=== PATIENT | female | born 1995 | race Caucasian/White ===

== ENCOUNTER 2016-05-29 20:36 | Emergency (ER) | payer OTHER ==
[~2016-05-29] VITALS: Ht 165.1 cm; Wt 203.9 kg
[2016-05-29 20:50] VITALS: TEMP 37.1
[2016-05-29] MEDS ORDERED: SODIUM CHLORIDE 0.9% 1000ML 1,000 ML IV STA (21:30)
[2016-05-29] MEDS ORDERED: HYDROmorphone INJ 1 MG/ML SYR IV STA ×2 (21:30→23:10)
[2016-05-29] MEDS ORDERED: ONDANSETRON INJ 2 MG/ML 2 ML VIAL IV STA (21:30)
--- NOTE | 2016-05-29 21:33 | EMERGENCY ROOM VISIT NOTE ---
History Report prepared by Azeem: Dutch Matta Under the Supervision of: Dr. Layo Reyez M.D. First contact with patient: 21:25 Chief Complaint: WOUND INFECTION Stated Complaint: LARGE HOLE - SWELLING IN STOMACH Nursing Triage Summary: wound just right of midline in the suprapubic panis that has been present for approximately 6 months. Draining X 3 days. Initial wound measures 2 cm X 3.5 cm. Surrounding errythemia measures approximatley 9 cm X 4 cm. Patient has ? chills. Wound is draining a large amount of purulent drainage. Wound culture obtained. History of Present Illness The patient is a 20 year old female who presents to the Emergency Room with complaints of a worsening wound on the abdomen the she has had for about six months. The wound occasionally flares up, but she has never had to come to the ED for it. The patient has had chills but is not sure if she has had fevers. The wound does not extend to her vagina or thighs. The patient does not regularly take anything for pain. The patient denies any burning with urination. She does not have a history of MRSA. The patient has never had the wound scanned. Source of History: patient Onset: six months Position: abdomen Quality: other (wound infection) Timing: worsening Associated Symptoms: + chills, No fevers, No urinary symptoms Review of Systems See HPI for pertinent positives & negatives. A total of 10 systems reviewed and were otherwise negative. Past Medical & Surgical Medical Problems: (1) Allergic rhinitis Family History No pertinent family history Social History Smoking Status: Former Smoker Housing Status: lives with family Current/Historical Medications Scheduled Cephalexin Monohydrate (Keflex), 500 MG PO QID Sulfa/Trimethoprim (Bactrim Ds 800MG/160MG), 2 TAB PO BID Allergies Coded Allergies: No Known Allergies (Unverified , 03/11/15) Physical Exam Vital Signs Date Time Temp Pulse Resp B/P Pulse Ox O2 Delivery O2 Flow Rate FiO2 05/30/16 00:17 111 18 124/83 95 Room Air 05/29/16 22:51 101 18 130/89 99 Room Air 05/29/16 22:44 106 22 95/59 99 05/29/16 20:50 37.1 122 20 187/93 97 Room Air Physical Exam GENERAL: Patient is n moderate distress and is uncomfortable appearing. HEENT: No acute trauma, normocephalic atraumatic, mucous membranes moist, no nasal congestion, no scleral icterus. NECK: No stridor, no adenopathy, no meningismus, trachea is midline. LUNGS: No dyspnea. Clear to auscultation and equal bilaterally. No wheeze, no rhonchi. HEART: Tachycardic regular rhythm. No murmurs, rubs, gallops appreciated. ABDOMEN: Morbidly obese. Large indurated area with erythema over the lower pannus with extensive purulent discharge, small abscess left mid pannus. BACK: No midline tenderness, no CVA tenderness EXTREMITIES: Normal motion all extremities, no cyanosis, no edema. NEUROLOGIC: Alert and oriented, no acute motor or sensory deficits, no focal weakness, cranial nerves grossly intact. SKIN: No rash, no jaundice, no diaphoresis. Medical Decision & Procedures ER Provider Diagnostic Interpretation: Radiology results and stated below per my review and radiologist interpretation: CT SCAN OF THE ABDOMEN AND PELVIS WITH IV CONTRAST CLINICAL HISTORY: Abdominal pannus abscess. COMPARISON STUDY: No priors. TECHNIQUE: Following the IV administration of 120 cc of Optiray 320, CT scan of the abdomen and pelvis is performed from the lung bases to the proximal femora. Images are reviewed in the axial, sagittal, and coronal planes. IV contrast was administered without complication. Automated dose control exposure was utilized. The examination is degraded by large body habitus, and by streak artifact from the body wall abutting the CT gantry. CT DOSE: 2414.05 mGy.cm FINDINGS: Lung bases: The heart is normal in size and without pericardial effusion. The lung bases are clear. There is a tiny hiatal hernia. Liver: The contrast-enhanced liver is enlarged, measuring 23.5 cm in length. The liver demonstrates diffusely diminished attenuation consistent with severe hepatic steatosis. There is no intrahepatic biliary ductal dilatation. The hepatic veins and portal veins are patent. Gallbladder: Surgically absent noting clips in the gallbladder fossa. Spleen: The spleen is enlarged, measuring 15.5 cm in length. Pancreas: Unremarkable. Adrenal glands: Unremarkable. Kidneys: The contrast enhanced kidneys are normal in size and without hydronephrosis. The kidneys enhance symmetrically. Abdominal vasculature: The abdominal aorta is normal in course and caliber. Bowel: The small bowel and colon are normal in course and caliber. The appendix is well-visualized and normal. Peritoneum: There is no intraperitoneal free air or abdominal ascites. There is a small fat-containing umbilical hernia. Lymphadenopathy: None. Pelvic viscera: The bladder, uterus, and adnexa are normal as visualized. There are small ovarian follicles. Skeletal structures: No lytic or blastic lesions are seen. Soft tissues: There is dermal thickening seen in the inferior aspect of the abdominal pain is with mild soft tissue induration on the right. A small cutaneous defect is suggested. No organized fluid collection is seen to indicate abscess. IMPRESSION: 1. There are no acute infectious or inflammatory findings in the abdomen or pelvis. 2. There is dermal thickening with surrounding induration seen within the inferior aspect of the ventral abdominal pannus. A small cutaneous defect suggests a wound or ulceration. The appearance is typical for cellulitis. No organized fluid collection is seen to indicate abscess. 3. Hepatomegaly and severe hepatic steatosis. 4. Splenomegaly. 5. Additional findings as above. Electronically signed by: Rm Driscoll M.D. 05/29/2016 10:43 PM Dictated Date/Time: 05/29/2016 10:37 PM Laboratory Results 05/29/16 21:35 Red Blood Count 4.87, Mean Corpuscular Volume 85.0, Mean Corpuscular Hemoglobin 27.9, Mean Corpuscular Hemoglobin Concent 32.9, Mean Platelet Volume 11.0, Neutrophils (%) (Auto) 67.9, Lymphocytes (%) (Auto) 23.3, Monocytes (%) (Auto) 6.5, Eosinophils (%) (Auto) 1.6, Basophils (%) (Auto) 0.4, Neutrophils # (Auto) 8.26, Lymphocytes # (Auto) 2.83, Monocytes # (Auto) 0.79, Eosinophils # (Auto) 0.20, Basophils # (Auto) 0.05 05/29/16 21:35 Test 05/29/16 21:35 05/29/16 21:54 05/29/16 21:58 White Blood Count 12.17 K/uL (4.8-10.8) Red Blood Count 4.87 M/uL (4.2-5.4) Hemoglobin 13.6 g/dL (12.0-16.0) Hematocrit 41.4 % (37-47) Mean Corpuscular Volume 85.0 fL (80-100) Mean Corpuscular Hemoglobin 27.9 pg (25-34) Mean Corpuscular Hemoglobin Concent 32.9 g/dl (32-36) Platelet Count 290 K/uL (130-400) Mean Platelet Volume 11.0 fL (7.4-10.4) Neutrophils (%) (Auto) 67.9 % Lymphocytes (%) (Auto) 23.3 % Monocytes (%) (Auto) 6.5 % Eosinophils (%) (Auto) 1.6 % Basophils (%) (Auto) 0.4 % Neutrophils # (Auto) 8.26 K/uL (1.4-6.5) Lymphocytes # (Auto) 2.83 K/uL (1.2-3.4) Monocytes # (Auto) 0.79 K/uL (0.11-0.59) Eosinophils # (Auto) 0.20 K/uL (0-0.5) Basophils # (Auto) 0.05 K/uL (0-0.2) RDW Standard Deviation 41.5 fL (36.4-46.3) RDW Coefficient of Variation 13.4 % (11.5-14.5) Immature Granulocyte % (Auto) 0.3 % Immature Granulocyte # (Auto) 0.04 K/uL (0.00-0.02) Estimated GFR () 115.1 Estimated GFR (Non- 99.4 BUN/Creatinine Ratio 16.8 (10-20) Calcium Level 8.9 mg/dl (8.5-10.1) C-Reactive Protein 1.52 mg/dl (0-0.29) Bedside Hemoglobin 14.3 g/dl (12.0-16.0) Bedside Hematocrit 42 % (37-47) Bedside Sodium 142 mEq/L (135-144) Bedside Potassium 4.0 mEq/L (3.3-5.0) Bedside Chloride 103 mEq/L (101-112) Bedside Total CO2 26 mEq/l (24-31) Anion Gap 18.0 mmol/L (16-25) Bedside Blood Urea Nitrogen 13 mg/dl (7-18) Bedside Creatinine 0.8 mg/dl (0.6-1.3) Bedside Glucose (other) 96 mg/dl (70-99) Bedside Ionized Calcium (Sean) 1.19 mmol/l (1.12-1.32) Bedside Lactic Acid Venous 1.08 mmol/L (0.90-1.70) Laboratory results as reviewed by me. Medications Administered Medications (Trade) Dose Ordered Sig/Geovanny Route Start Time Stop Time Status Last Admin Dose Admin Hydromorphone HCl (Dilaudid Inj) 1 mg NOW STAT IV 05/29/16 21:30 05/29/16 21:33 DC 05/29/16 22:02 1 MG Ondansetron HCl 4 mg 4 mg NOW STAT IV 05/29/16 21:30 05/29/16 21:33 DC 05/29/16 22:02 4 MG Sodium Chloride (Nss 1000ml) 1,000 ml @ 999 mls/hr Q1H1M STAT IV 05/29/16 21:30 05/29/16 22:30 DC 05/29/16 21:59 999 MLS/HR Hydromorphone HCl 1 mg 1 mg NOW STAT IV 05/29/16 23:10 05/29/16 23:11 DC 05/29/16 23:17 1 MG Ceftriaxone Sodium/Dextrose (Rocephin Inj/D5 50ml) 70 ml @ 140 mls/hr NOW STAT IV 05/29/16 23:17 05/29/16 23:46 DC 05/29/16 23:27 140 MLS/HR Trimethoprim/ Sulfamethoxazole (Septra Ds 800/ 160MG Tab) 2 tab NOW STAT PO 05/29/16 23:40 05/29/16 23:41 DC 05/30/16 00:19 2 TAB Oxycodone HCl (Roxicodone Immediate Rel 5MG Home Pack) 1 homepack UD ONCE PO 05/29/16 23:45 05/29/16 23:46 DC 05/30/16 00:20 1 HOMEPACK Ondansetron HCl (ZOFRAN ODT 4MG Home Pack) 1 homepack UD ONCE PO 05/29/16 23:45 05/29/16 23:46 DC 05/30/16 00:20 1 HOMEPACK Procedure Incision & Drainage Indication: Abscess. Location: right pannus. exudate expressed Verbal consent was obtained after the risks and benefits were explained, including but not limited to bleeding, scarring, infection, pain, and bone/joint /nerve damage. At this time, the risks of the procedure are less than the risks of NOT performing the procedure. A time out was taken and the correct patient and site identified. The skin was prepped with betadine and a sterile field set. The wound was anesthetized with 2 mls 1% lidocaine without epinephrine. The abscess cavity was entered with a number 11 blade and exudative material expressed. The wound was explored for foreign bodies and none found. Debridement was not performed. Packing placed and a sterile dressing applied. Detailed wound care instructions and signs and symptoms of worsening infection reviewed with the patient. No complications and the patient tolerated the procedure well. ED Course 2119: The patient was evaluated in room A11b. A complete history and physical exam was performed. 0: NSS 1000 ml @ 999 mls/hr, Zofran 4 mg IV, Dilaudid 1 mg IV. 2224: The patient is feeling better. She will go to CT. 2310: Dilaudid 1 mg IV, Rocephin 2 gm IV. 2317: Ceftriaxone Sodium 2000 mg / dextrose 70 ml @ 140 mls/hr. 2317: Discussed incision & drainage procedure with her. She agreed. 2330: Incision & Drainage performed. Please see procedural note above. 2340: Septra Ds 800/160 mg 2 tabs PO. 2345: Zofran Odt 4 mg PO homepack, Oxycodone IR 5 mg PO homepack. Medical Decision Differential diagnosis includes abscess, cellulitis, intraabdominal infection, sepsis. 20 yr old female with draining abscess abdominal wall. With prolonged history went ahead with CT which did not show other acute findings besides abscess and cellulitis. Opened and packed abscessed as above. Given Rocphine IV and PO Bactrim. Will treat with Keflex and Bactrim given cellulitis with MRSA concern as well pending cultures. She is not septic. Mild tachy second mostly to anxiety I feel. Discussed return in 2-3 days for wound check, earlier if worsening symptoms or other concerns. Impression Primary Impression: Cutaneous abscess of abdominal wall Additional Impression: Cellulitis of abdominal wall Scribe Attestation The scribe's documentation has been prepared under my direction and personally reviewed by me in its entirety. I confirm that the note above accurately reflects all work, treatment, procedures, and medical decision making performed by me. Departure Information Dispostion Home / Self-Care Prescriptions Sulfa/Trimethoprim (Bactrim Ds 800MG/160MG) Tab 2 TAB PO BID for 7 Days, #14 TAB Prov: Layo Reyez M.D. 05/30/16 Cephalexin Monohydrate (Keflex) 500 Mg Cap 500 MG PO QID for 7 Days, #28 CAP Prov: Layo Reyez M.D. 05/30/16 Referrals Jose Steel M.D. (PCP) Patient Instructions ED Abscess IandD, [facility] Additional Instructions Return Thursday for removal of packing and repeat evaluation of wound. Problem Qualifiers
[2016-05-29] MEDS ORDERED: OPTIRAY 320 IV PRN (21:45)
[2016-05-29 22:07] LABS: BASO % 0.4 %; BASO ABS # 0.05 K/uL (0-0.2); COMPLETE YES; EOS % 1.6 %; HEMATOCRIT 41.4 % (37-47); IG% 0.3 %; LYMPH % 23.3 %; LYMPH ABS # 2.83 K/uL (1.2-3.4); MEAN CORPUSCULAR HEMOGLOBIN 27.9 pg (25-34); MEAN CORPUSCULAR HGB CONC 32.9 g/dl (32-36); MONO % 6.5 %; NEUT % 67.9 %; PLATELET COUNT 290 K/uL (130-400); RED BLOOD COUNT 4.87 M/uL (4.2-5.4); WHITE BLOOD COUNT 12.17 K/uL (4.8-10.8)
[2016-05-29 22:19] LABS: ISTAT CREATININE 0.8 mg/dl (0.6-1.3); ISTAT HEMOGLOBIN 14.3 g/dl (12.0-16.0); ISTAT IONIZED CALCIUM 1.19 mmol/l (1.12-1.32)
[2016-05-29 22:24] LABS: BLOOD UREA NITROGEN 14 mg/dl (7-18); BUN/CREATININE RATIO 16.8 (10-20); C-REACTIVE PROTEIN 1.52 mg/dl (0-0.29); CALCIUM 8.9 mg/dl (8.5-10.1); CARBON DIOXIDE 29 mmol/L (21-32); CHLORIDE 106 mmol/L (98-107); CREATININE 0.84 mg/dl (0.60-1.20); GLUCOSE 89 mg/dl (70-99); SODIUM 140 mmol/L (136-145)
[2016-05-29 22:37] VITALS: Ht 165.1 cm; Wt 203.9 kg
--- NOTE | 2016-05-29 22:44 | DIAGNOSTIC IMAGING REPORT ---
CT SCAN OF THE ABDOMEN AND PELVIS WITH IV CONTRAST CLINICAL HISTORY: Abdominal pannus abscess. COMPARISON STUDY: No priors. TECHNIQUE: Following the IV administration of 120 cc of Optiray 320, CT scan of the abdomen and pelvis is performed from the lung bases to the proximal femora. Images are reviewed in the axial, sagittal, and coronal planes. IV contrast was administered without complication. Automated dose control exposure was utilized. The examination is degraded by large body habitus, and by streak artifact from the body wall abutting the CT gantry. CT DOSE: 2414.05 mGy.cm FINDINGS: Lung bases: The heart is normal in size and without pericardial effusion. The lung bases are clear. There is a tiny hiatal hernia. Liver: The contrast-enhanced liver is enlarged, measuring 23.5 cm in length. The liver demonstrates diffusely diminished attenuation consistent with severe hepatic steatosis. There is no intrahepatic biliary ductal dilatation. The hepatic veins and portal veins are patent. Gallbladder: Surgically absent noting clips in the gallbladder fossa. Spleen: The spleen is enlarged, measuring 15.5 cm in length. Pancreas: Unremarkable. Adrenal glands: Unremarkable. Kidneys: The contrast enhanced kidneys are normal in size and without hydronephrosis. The kidneys enhance symmetrically. Abdominal vasculature: The abdominal aorta is normal in course and caliber. Bowel: The small bowel and colon are normal in course and caliber. The appendix is well-visualized and normal. Peritoneum: There is no intraperitoneal free air or abdominal ascites. There is a small fat-containing umbilical hernia. Lymphadenopathy: None. Pelvic viscera: The bladder, uterus, and adnexa are normal as visualized. There are small ovarian follicles. Skeletal structures: No lytic or blastic lesions are seen. Soft tissues: There is dermal thickening seen in the inferior aspect of the abdominal pain is with mild soft tissue induration on the right. A small cutaneous defect is suggested. No organized fluid collection is seen to indicate abscess. IMPRESSION: 1. There are no acute infectious or inflammatory findings in the abdomen or pelvis. 2. There is dermal thickening with surrounding induration seen within the inferior aspect of the ventral abdominal pannus. A small cutaneous defect suggests a wound or ulceration. The appearance is typical for cellulitis. No organized fluid collection is seen to indicate abscess. 3. Hepatomegaly and severe hepatic steatosis. 4. Splenomegaly. 5. Additional findings as above. Electronically signed by: Rm Driscoll M.D. 05/29/2016 10:43 PM Dictated Date/Time: 05/29/2016 10:37 PM
[2016-05-29] MEDS ORDERED: LIDOCAINE/EPINEPHRINE 1% 20 ML VIAL INFIL ONE (22:45)
[2016-05-29] MEDS ORDERED: CEFTRIAXONE SOD INJ 1 GM ADDVIAL IV STA (23:10)
[2016-05-29] MEDS ORDERED: CEFTRIAXONE SOD INJ 2000 MG in DEXTROSE 5% 50ML IV STA (23:17)
[2016-05-29] MEDS ORDERED: SULFAMETHOXAZOLE/TRIMETHOPRIM DS 800/160MG TAB PO STA (23:40)
[2016-05-29] MEDS ORDERED: ONDANSETRON HOME PACK 4MG OD TAB PO ONE (23:45)
[2016-05-29] MEDS ORDERED: OXYCODONE IR HOME PACK PO ONE (23:45)
[2016-05-30 00:17] VITALS: BP 124/83; PULSE 111; O2SAT 95
[2016-05-30] MEDS ORDERED: SULF800T23 PO (00:21)
[2016-05-30] MEDS ORDERED: CEPH500C PO (00:21)
== END 2016-05-30 00:28 | disposition home or self-care (01) ==
LOC: C.EDB 20:39 → C.EDA 05-30 00:28
DX: L02.211 Cutaneous abscess of abdominal wall (principal); L03.311 Cellulitis of abdominal wall; Z86.14 Personal history of Methicillin resistant Staphylococcus aureus infection; Z87.891 Personal history of nicotine dependence; E66.01 Morbid (severe) obesity due to excess calories

== ENCOUNTER 2016-05-31 20:02 | Inpatient (IN) | payer OTHER ==
[~2016-05-31] VITALS: Ht 165.1 cm; Wt 161.7 kg
[~2016-05-31 20:02] MED LIST: CEPH500C PO; SULF800T23 PO
[2016-05-31] MEDS ORDERED: SODIUM CHLORIDE 0.9% 1000ML 1,000 ML IV STA (20:27)
[2016-05-31] MEDS ORDERED: OXYCODONE HCL IR 5 MG TAB (IMMEDIATE RELEASE) PO STA (20:27)
[2016-05-31] MEDS ORDERED: CEFTRIAXONE SOD INJ 1 GM ADDVIAL IV STA (20:27)
--- NOTE | 2016-05-31 20:36 | EMERGENCY ROOM VISIT NOTE ---
History Report prepared by Azeem: Valarie Vance Under the Supervision of: Dr. Stewart Rene D.O. First contact with patient: 20:22 Chief Complaint: WOUND INFECTION Stated Complaint: CUT ON ABD, SWELLING & PUSS, DIARRHEA,NAUSEA History of Present Illness The patient is a 20 year old female who presents to the Emergency Room with complaints of worsening redness in a wound. The patient had a stomach infection which was cut open 2 days ago. She presents to the ED after the redness in the wound began to spread. She has been experiencing nausea. She denies any fever, chills, or redness in the legs. She reports that she is on Bactrim and Keflex. She denies any history of diabetes or hypertension. Source of History: patient Onset: 2 days ago Position: abdomen Quality: other (redness) Timing: worsening Associated Symptoms: + nausea, No chills, No fevers Note: Pt denies redness in legs. Review of Systems See HPI for pertinent positives & negatives. A total of 10 systems reviewed and were otherwise negative. Past Medical & Surgical Medical Problems: (1) Allergic rhinitis Family History No pertinent family history Social History Smoking Status: Light Tobacco Smoker Marital Status: single Housing Status: lives with family Occupation Status: unemployed Current/Historical Medications Scheduled Cephalexin Monohydrate (Keflex), 500 MG PO QID Sulfa/Trimethoprim (Bactrim Ds 800MG/160MG), 2 TAB PO BID Allergies Coded Allergies: No Known Allergies (Unverified , 03/11/15) Physical Exam Vital Signs Date Time Temp Pulse Resp B/P Pulse Ox O2 Delivery O2 Flow Rate FiO2 05/31/16 21:48 103 20 150/83 97 Room Air 05/31/16 20:09 37.3 122 20 140/87 95 Room Air Physical Exam GENERAL: Patient is awake, alert, and in no acute distress. Patient is resting comfortably and showing no signs of anxiety EYES: The conjunctivae are clear. The pupils are round and reactive. EARS, NOSE, MOUTH AND THROAT: The nose is without any evidence of any deformity. Mucous membranes are moist tongue is midline NECK: The neck is nontender and supple. RESPIRATORY: Normal respiratory effort is noted there is no evidence of wheezing rhonchi or rales CARDIOVASCULAR: Tachycardic rate and regular rhythm. No definite murmur noted to auscultation. GASTROINTESTINAL: The abdomen obese, but soft. No tenderness, guarding, or rigidity. A recent I&D site was noted over the lower abdominal wall. Significant surrounding cellulitis noted. Wound packing was removed. No purulent discharge was noted. MUSCULOSKELETAL/EXTREMITIES: There is no evidence of gross deformity full range of motion is noted in the hips and shoulders SKIN: No lower extremity edema noted. NEUROLOGIC: Patient is awake alert and oriented x3 Medical Decision & Procedures Laboratory Results 05/31/16 20:45 Red Blood Count 4.98, Mean Corpuscular Volume 84.5, Mean Corpuscular Hemoglobin 28.3, Mean Corpuscular Hemoglobin Concent 33.5, Mean Platelet Volume 11.1, Neutrophils (%) (Auto) 64.0, Lymphocytes (%) (Auto) 27.9, Monocytes (%) (Auto) 5.1, Eosinophils (%) (Auto) 2.2, Basophils (%) (Auto) 0.6, Neutrophils # (Auto) 6.81, Lymphocytes # (Auto) 2.97, Monocytes # (Auto) 0.54, Eosinophils # (Auto) 0.23, Basophils # (Auto) 0.06 05/31/16 20:45 Test 05/31/16 20:45 White Blood Count 10.63 K/uL (4.8-10.8) Red Blood Count 4.98 M/uL (4.2-5.4) Hemoglobin 14.1 g/dL (12.0-16.0) Hematocrit 42.1 % (37-47) Mean Corpuscular Volume 84.5 fL (80-100) Mean Corpuscular Hemoglobin 28.3 pg (25-34) Mean Corpuscular Hemoglobin Concent 33.5 g/dl (32-36) Platelet Count 327 K/uL (130-400) Mean Platelet Volume 11.1 fL (7.4-10.4) Neutrophils (%) (Auto) 64.0 % Lymphocytes (%) (Auto) 27.9 % Monocytes (%) (Auto) 5.1 % Eosinophils (%) (Auto) 2.2 % Basophils (%) (Auto) 0.6 % Neutrophils # (Auto) 6.81 K/uL (1.4-6.5) Lymphocytes # (Auto) 2.97 K/uL (1.2-3.4) Monocytes # (Auto) 0.54 K/uL (0.11-0.59) Eosinophils # (Auto) 0.23 K/uL (0-0.5) Basophils # (Auto) 0.06 K/uL (0-0.2) RDW Standard Deviation 40.3 fL (36.4-46.3) RDW Coefficient of Variation 13.3 % (11.5-14.5) Immature Granulocyte % (Auto) 0.2 % Immature Granulocyte # (Auto) 0.02 K/uL (0.00-0.02) Erythrocyte Sedimentation Rate 30 mm/hr (0-21) Anion Gap 6.0 mmol/L (3-11) Est Creatinine Clear Calc Drug Dose 126.3 ml/min Estimated GFR () 83.1 Estimated GFR (Non- 71.7 BUN/Creatinine Ratio 9.6 (10-20) Calcium Level 8.5 mg/dl (8.5-10.1) Total Bilirubin 0.4 mg/dl (0.2-1) Direct Bilirubin < 0.1 mg/dl (0-0.2) Aspartate Amino Transf (AST/SGOT) 20 U/L (15-37) Alanine Aminotransferase (ALT/SGPT) 38 U/L (12-78) Alkaline Phosphatase 65 U/L (45-117) C-Reactive Protein 1.37 mg/dl (0-0.29) Total Protein 8.3 gm/dl (6.4-8.2) Albumin 3.6 gm/dl (3.4-5.0) Lipase 108 U/L (73-393) Human Chorionic Gonadotropin, Qual NEG (NEG) Lyme Disease IgG Antibody NEG (NEG) Lyme Disease IgM Antibody NEG (NEG) Laboratory results per my review. Medications Administered Medications (Trade) Dose Ordered Sig/Geovanny Route Start Time Stop Time Status Last Admin Dose Admin Ceftriaxone Sodium 1 gm 1 gm NOW STAT IV 05/31/16 20:27 05/31/16 20:28 DC 05/31/16 20:27 1 GM Sodium Chloride (Nss 1000ml) 1,000 ml @ 250 mls/hr Q4H STAT IV 05/31/16 20:27 06/01/16 00:26 05/31/16 20:27 250 MLS/HR Oxycodone HCl 5 mg 5 mg NOW STAT PO 05/31/16 20:27 05/31/16 20:28 DC 05/31/16 20:27 5 MG Vancomycin HCl/ Sodium Chloride (Vancomycin Inj/ Nss 500ml) 540 ml @ 200 mls/hr ONE STAT IV 05/31/16 21:16 05/31/16 23:57 05/31/16 21:30 200 MLS/HR ED Course 2023: The patient was evaluated in room C1. A complete history and physical examination were performed. 2026: Oxycodone HCl 5 mg PO, NSS 1000 ml @ 250 mls/hr IV, Rocephin Inj 1 gm IV. 2115: Vancomycin HCl 2000 mg/Sodium Chloride 540 ml @ 200 mls/hr IV. 2120: I reevaluated the patient. She is resting comfortably. I discussed results and treatment plan with her. She verbalizes agreement and understanding. The patient will be evaluated for further management and care. 2126: I [facility] the [facility] The patient will be evaluated for further management. Medical Decision Prior records reviewed and summarized as above. Triage Nursing notes reviewed. The patient's history was concerning for swelling and redness of the skin. Differential diagnosis: Etiologies such as cellulitis, abscess, MRSA infection, DVT, necrotizing fasciitis, dermatitis, drug eruption, as well as others were entertained. The patient is a 20-year-old female who presented to the emergency department for worsening abdominal wall cellulitis. She was seen recently for similar complaints. She was started on antibiotics. She had an I&D of the area. Unfortunately she started having increasing redness and has a very large indurated area over lower abdominal wall. The patient was given IV antibiotics in the emergency department. [facility] agreed to evaluate the patient in emergency department for further management and disposition. I was concerned because the increasing cellulitis. The patient's initial culture appears to be growing out staph aureus. Consults Time Called: 2119 Consulting Physician[facility] Returned Call: [phone] I discussed the patient's case with him. The patient will be evaluated for further management. Impression Primary Impression: Abdominal wall cellulitis Scribe Attestation The scribe's documentation has been prepared under my direction and personally reviewed by me in its entirety. I confirm that the note above accurately reflects all work, treatment, procedures, and medical decision making performed by me. Departure Information Dispostion Being Evaluated By Hospitalist Referrals No Doctor, Assigned (PCP) Patient Instructions My [facility]
[2016-05-31 21:04] LABS: BASO % 0.6 %; BASO ABS # 0.06 K/uL (0-0.2); COMPLETE YES; EOS % 2.2 %; HEMATOCRIT 42.1 % (37-47); IG% 0.2 %; LYMPH % 27.9 %; LYMPH ABS # 2.97 K/uL (1.2-3.4); MEAN CELL VOLUME 84.5 fL (80-100); MEAN CORPUSCULAR HEMOGLOBIN 28.3 pg (25-34); MEAN CORPUSCULAR HGB CONC 33.5 g/dl (32-36); MEAN PLATELET VOLUME 11.1 fL (7.4-10.4); MONO % 5.1 %; PLATELET COUNT 327 K/uL (130-400); RED BLOOD COUNT 4.98 M/uL (4.2-5.4); WHITE BLOOD COUNT 10.63 K/uL (4.8-10.8)
[2016-05-31] MEDS ORDERED: VANCOMYCIN INJ 2,000 MG in SODIUM CHLORIDE 0.9% 500ML 500 ML IV STA (21:16)
[2016-05-31 21:19] LABS: PREG INTERNAL NEGATIVE QC NEG CLEAR BACKGROUND; PREG INTERNAL POSITIVE QC POS CONTROL LINE
[2016-05-31 21:22] LABS: ALT/SGPT 38 U/L (12-78); BLOOD UREA NITROGEN 11 mg/dl (7-18); BUN/CREATININE RATIO 9.6 (10-20); C-REACTIVE PROTEIN 1.37 mg/dl (0-0.29); CALCIUM 8.5 mg/dl (8.5-10.1); CARBON DIOXIDE 28 mmol/L (21-32); CHLORIDE 106 mmol/L (98-107); GLUCOSE 88 mg/dl (70-99); POTASSIUM 3.7 mmol/L (3.5-5.1); SODIUM 140 mmol/L (136-145)
[2016-05-31 21:25] LABS: ALKALINE PHOSPHATASE 65 U/L (45-117); AST/SGOT 20 U/L (15-37)
[2016-05-31 21:54] LABS: LYME DISEASE AB IGG NEG (NEG); LYME DISEASE AB IGM NEG (NEG)
[2016-05-31] MEDS ORDERED: ACETAMINOPHEN 325 MG TAB PO PRN (22:15)
--- NOTE | 2016-05-31 22:42 | History and Physical ---
History & Physical Date & Time of Service: May 31, 2016 at 22:42 . Chief Complaint: abdominal redness, pain, drainage . Primary Care Physician: Pauline Reina MD . History of Present Illness Source: patient, clinic records, hospital records 20 [address] followed by Dr[address] Reina. History of mild asthma and obesity. Developed abdominal abscess about 7 days ago. Became more painful. Evaluated in ED on 05/29. CT showed dermal thickening and induration. I & D performed. Discharged on TMP/sulfa + cephalexin. Increasing drainage from I&D wound over past 2 days. Increasing erythema and pain. No fever, chills, sweats. Loose stools since starting antibiotics. . Past Medical/Surgical History Chronic and Resolved Medical Problems: (1) Allergic rhinitis Status: Resolved (2) Asthma Status: Chronic (3) Obesity Status: Chronic Surgical Problems: (1) Status post cholecystectomy Status: Chronic . Family History FATHER Diabetes mellitus MOTHER Heart disease Social History Smoking Status: Light Tobacco Smoker Alcohol Use: none Marital Status: single Occupational Status: unemployed Allergies Coded Allergies: No Known Allergies (Unverified , 03/11/15) Home Medications Scheduled Cephalexin Monohydrate (Keflex), 500 MG PO QID Sulfa/Trimethoprim (Bactrim Ds 800MG/160MG), 2 TAB PO BID Review of Systems As noted above in HPI. . Physical Exam Vital Signs Date Time Temp Pulse Resp B/P Pulse Ox O2 Delivery O2 Flow Rate FiO2 05/31/16 21:48 103 20 150/83 97 Room Air 05/31/16 20:09 37.3 122 20 140/87 95 Room Air General Appearance: no apparent distress, + obese Head: normocephalic, atraumatic Eyes: normal inspection, PERRL, EOMI, sclerae normal ENT: normal ENT inspection, hearing grossly normal Neck: supple, no adenopathy, thyroid normal, no JVD, trachea midline Respiratory/Chest: lungs clear, no respiratory distress, no accessory muscle use Cardiovascular: regular rate, rhythm, no edema, no gallop, no JVD, no murmur Abdomen/GI: normal bowel sounds, non tender, soft, no organomegaly, no pulsatile mass Extremities/Musculoskelatal: no calf tenderness, + pertinent finding (chronic- appearing lymphedema) Neurologic/Psych: 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-XII nml as tested (PERRL, EOMI), alert, normal mood/ affect, oriented x 3 Skin: + pertinent finding (incision RLQ abdomen with purulent drainage; erythema + induration extending across midline) Lymphatic: no adenopathy Diagnostics Laboratory Results Results Past 24 Hours Test 05/31/16 20:45 Range/Units White Blood Count 10.63 4.8-10.8 K/uL Red Blood Count 4.98 4.2-5.4 M/uL Hemoglobin 14.1 12.0-16.0 g/dL Hematocrit 42.1 37-47 % Mean Corpuscular Volume 84.5 80-100 fL Mean Corpuscular Hemoglobin 28.3 25-34 pg Mean Corpuscular Hemoglobin Concent 33.5 32-36 g/dl Platelet Count 327 130-400 K/uL Mean Platelet Volume 11.1 7.4-10.4 fL Neutrophils (%) (Auto) 64.0 % Lymphocytes (%) (Auto) 27.9 % Monocytes (%) (Auto) 5.1 % Eosinophils (%) (Auto) 2.2 % Basophils (%) (Auto) 0.6 % Neutrophils # (Auto) 6.81 1.4-6.5 K/uL Lymphocytes # (Auto) 2.97 1.2-3.4 K/uL Monocytes # (Auto) 0.54 0.11-0.59 K/uL Eosinophils # (Auto) 0.23 0-0.5 K/uL Basophils # (Auto) 0.06 0-0.2 K/uL RDW Standard Deviation 40.3 36.4-46.3 fL RDW Coefficient of Variation 13.3 11.5-14.5 % Immature Granulocyte % (Auto) 0.2 % Immature Granulocyte # (Auto) 0.02 0.00-0.02 K/uL Erythrocyte Sedimentation Rate 30 0-21 mm/hr Sodium Level 140 136-145 mmol/L Potassium Level 3.7 3.5-5.1 mmol/L Chloride Level 106 98-107 mmol/L Carbon Dioxide Level 28 21-32 mmol/L Anion Gap 6.0 3-11 mmol/L Blood Urea Nitrogen 11 7-18 mg/dl Creatinine 1.10 0.60-1.20 mg/dl Est Creatinine Clear Calc Drug Dose 126.3 ml/min Estimated GFR () 83.1 Estimated GFR (Non- 71.7 BUN/Creatinine Ratio 9.6 10-20 Random Glucose 88 70-99 mg/dl Calcium Level 8.5 8.5-10.1 mg/dl Total Bilirubin 0.4 0.2-1 mg/dl Direct Bilirubin < 0.1 0-0.2 mg/dl Aspartate Amino Transf (AST/SGOT) 20 15-37 U/L Alanine Aminotransferase (ALT/SGPT) 38 12-78 U/L Alkaline Phosphatase 65 45-117 U/L C-Reactive Protein 1.37 0-0.29 mg/dl Total Protein 8.3 6.4-8.2 gm/dl Albumin 3.6 3.4-5.0 gm/dl Lipase 108 73-393 U/L Human Chorionic Gonadotropin, Qual NEG NEG Lyme Disease IgG Antibody NEG NEG Lyme Disease IgM Antibody NEG NEG Impression Assessment and Plan ABSCESS / CELLULITIS ABDOMEN Worsening cellulitis despite oral therapy with TMP/sulfa and cephalexin. Wound culture from I&D growing Staph aureus and coag neg Staph. Sensitivities for Staph aureus pending. Received IV vancomycin in ED, but developed facial flushing. Will change gram positive coverage to IV daptomycin. Ceftriaxone for gram negative coverage. Consult General Surgery and ID. LOOSE STOOLS Check stool for C diff. VTE PROPHYLAXIS Moderate risk for VTE. SQ enoxaparin. Ambulate. DISPOSITION Admit to Med-Surg Unit. Expected discharge to home. Family Medicine follow-up with Dr. Reina. . VTE Prophylaxis VTE Risk Assessment Done? Y/N: Yes Risk Level: Moderate Given or contraindicated: Enoxaparin (Lovenox)SQ
[2016-05-31 23:15] VITALS: BP 146/92; PULSE 113; TEMP 37; O2SAT 99; Ht 165.1 cm; Wt 161.7 kg
[2016-06-01 01:40] LABS: URINE APPEARANCE CLEAR (CLEAR); URINE BILIRUBIN NEG (NEG); URINE COLOR YELLOW; URINE NITRITE NEG (NEG); UROBILINOGEN NEG (NEG)
[2016-06-01 01:49] LABS: MANUAL MICROSCOPIC REQUIRED? NO; REVIEW REQ? NO
[2016-06-01] MEDS ORDERED: OXYCODONE/ACETAMINOPHEN 5-325 TAB PO PRN (05:15)
[2016-06-01 08:03] VITALS: BP 104/71; PULSE 90; TEMP 36.5; O2SAT 97
[2016-06-01 08:16] LABS: INR 0.9 (0.9-1.1); PARTIAL THROMBOPLASTIN RATIO 1.1
[2016-06-01] MEDS ORDERED: ENOXAPARIN 40 MG/0.4 ML SYR SQ SCH (09:00)
[2016-06-01] MEDS ORDERED: DAPTOmycin IV 650 MG in SODIUM CHLORIDE 0.9% 50ML 50 ML IV SCH (09:00)
--- NOTE | 2016-06-01 10:20 | Progress Note ---
Internal Med Progress Note Date of Service: Jun 01, 2016. Provider Documentation: SUBJECTIVE: Patient is doing better and eager to be discharged. Pain, redness - abdomen improving. No fever , chills. Drainage from site - improved. Diarrhea- improved OBJECTIVE: Vital Signs-as noted below Exam: General-AAOX3, no distress, Morbidly obese + Neck-Supple. No JVD Lungs-AEBE, no wheezing, rhonchi Heart-S1, S2 normal, no murmurs Abdomen-Soft, mild tenderness- surrounding I & D site, Erythema- improved, no drainage noted. Dressing re applied. Extremities-No edema Skin - Multiple tattoos Lab data as noted below. ASSESSMENT & PLAN: ABSCESS / CELLULITIS ABDOMEN : Clinically improving Was in ED on 05/29/16- I & D was performed- was sent home on TMP/Sulfa/ Cephalexin and came for increasing drainage, redness, pain. Tmax 37.9, Erythema, Tenderness has improved, no more discharge from site. -Wound culture from I&D growing MSSA and coag neg Staph pansensitive, so has been on right antibiotics -S/P IV Vancomycin in ED- Flushing --> Changed to Daptomycin per admitting physician -ID consulted, General surgery consulted- awaiting inputs. Will need to narrow down the spectrum of antibiotics per C/S- will defer to ID. LOOSE STOOLS Likely secondary to antibiotics -C diff- pending collection MORBID OBESITY -Counseling about weight loss done VTE PROPHYLAXIS -Moderate risk for VTE. -SQ enoxaparin. -Ambulate. DISPOSITION Expected discharge to home- likely in 1-2 days Family Medicine follow-up with Dr. Reina Vital Signs: Date Time Temp Pulse Resp B/P Pulse Ox O2 Delivery O2 Flow Rate FiO2 06/01/16 08:03 36.5 90 18 104/71 97 05/31/16 23:15 37.0 113 20 146/92 99 Room Air 05/31/16 22:51 98 20 96 05/31/16 21:48 103 20 150/83 97 Room Air 05/31/16 20:09 37.3 122 20 140/87 95 Room Air Lab Results: Results Past 24 Hours Test 05/31/16 20:45 05/31/16 23:55 06/01/16 07:03 Range/Units White Blood Count 10.63 4.8-10.8 K/uL Red Blood Count 4.98 4.2-5.4 M/uL Hemoglobin 14.1 12.0-16.0 g/dL Hematocrit 42.1 37-47 % Mean Corpuscular Volume 84.5 80-100 fL Mean Corpuscular Hemoglobin 28.3 25-34 pg Mean Corpuscular Hemoglobin Concent 33.5 32-36 g/dl Platelet Count 327 130-400 K/uL Mean Platelet Volume 11.1 7.4-10.4 fL Neutrophils (%) (Auto) 64.0 % Lymphocytes (%) (Auto) 27.9 % Monocytes (%) (Auto) 5.1 % Eosinophils (%) (Auto) 2.2 % Basophils (%) (Auto) 0.6 % Neutrophils # (Auto) 6.81 1.4-6.5 K/uL Lymphocytes # (Auto) 2.97 1.2-3.4 K/uL Monocytes # (Auto) 0.54 0.11-0.59 K/uL Eosinophils # (Auto) 0.23 0-0.5 K/uL Basophils # (Auto) 0.06 0-0.2 K/uL RDW Standard Deviation 40.3 36.4-46.3 fL RDW Coefficient of Variation 13.3 11.5-14.5 % Immature Granulocyte % (Auto) 0.2 % Immature Granulocyte # (Auto) 0.02 0.00-0.02 K/uL Erythrocyte Sedimentation Rate 30 0-21 mm/hr Sodium Level 140 136-145 mmol/L Potassium Level 3.7 3.5-5.1 mmol/L Chloride Level 106 98-107 mmol/L Carbon Dioxide Level 28 21-32 mmol/L Anion Gap 6.0 3-11 mmol/L Blood Urea Nitrogen 11 7-18 mg/dl Creatinine 1.10 0.60-1.20 mg/dl Est Creatinine Clear Calc Drug Dose 126.3 ml/min Estimated GFR () 83.1 Estimated GFR (Non- 71.7 BUN/Creatinine Ratio 9.6 10-20 Random Glucose 88 70-99 mg/dl Calcium Level 8.5 8.5-10.1 mg/dl Total Bilirubin 0.4 0.2-1 mg/dl Direct Bilirubin < 0.1 0-0.2 mg/dl Aspartate Amino Transf (AST/SGOT) 20 15-37 U/L Alanine Aminotransferase (ALT/SGPT) 38 12-78 U/L Alkaline Phosphatase 65 45-117 U/L C-Reactive Protein 1.37 0-0.29 mg/dl Total Protein 8.3 6.4-8.2 gm/dl Albumin 3.6 3.4-5.0 gm/dl Lipase 108 73-393 U/L Human Chorionic Gonadotropin, Qual NEG NEG Lyme Disease IgG Antibody NEG NEG Lyme Disease IgM Antibody NEG NEG Urine Color YELLOW Urine Appearance CLEAR CLEAR Urine pH 7.0 4.5-7.5 Urine Specific [place] 1.030 1.000-1.030 Urine Protein NEG NEG Urine Glucose (UA) NEG NEG Urine Ketones NEG NEG Urine Occult Blood NEG NEG Urine Nitrite NEG NEG Urine Bilirubin NEG NEG Urine Urobilinogen NEG NEG Urine Leukocyte Esterase NEG NEG Prothrombin Time 10.0 9.0-12.0 SECONDS Prothromb Time International Ratio 0.9 0.9-1.1 Activated Partial Thromboplast Time 27.3 21.0-31.0 SECONDS Partial Thromboplastin Ratio 1.1
--- NOTE | 2016-06-01 10:47 | Pre-Operative Consultation ---
History General Date of Service: Jun 01, 2016. HPI HPI: The patient is a 20 year old female being seen for cellulitis of her abdominal wall. She presented with complaints of worsening redness in a wound. She had I& D of left lower abdominal wall 2 days ago. She denies fever or chills. She reports that she is on Bactrim and Keflex. A CT scan shows cellulitis without abscess. Historian: patient Procedure Urgency: Acute Risk Assessment Daily beta eliseo use?: No Problem List Medical Problems: (1) Abdominal wall cellulitis Status: Acute (2) Cellulitis of abdominal wall Status: Acute (3) Cutaneous abscess of abdominal wall Status: Acute (4) cholecystectomy Medical & Surgical History Past Medical History: other (morbid obesity) Past Surgical History: cholecystectomy Family History Family History: no pertinent family hx Social History Smoking Status: Current Every Day Smoker Alcohol: occasionally Drug Use: none Marital status: single Housing status: lives with family Occupation status: unemployed Allergies Allergies: Coded Allergies: No Known Allergies (Unverified , 03/11/15) Medications Current Inpatient Medications Current Inpatient Medications Medications (Trade) Dose Ordered Sig/Geovanny Route Start Time Stop Time Status Last Admin Dose Admin Acetaminophen (Tylenol Tab) 650 mg Q4H PRN PO 05/31/16 22:15 06/30/16 22:14 05/31/16 23:33 650 MG Enoxaparin Sodium 40 mg 40 mg QAM SQ 06/01/16 09:00 07/01/16 08:59 Ceftriaxone Sodium 2000 mg/ Dextrose 70 ml @ 100 mls/hr DAILY@2000 IV 06/01/16 20:00 06/09/16 20:41 Daptomycin/Sodium Chloride (Cubicin IV/Nss 50ml) 63 ml @ 100 mls/hr DAILY@0900 IV 06/01/16 09:00 06/11/16 08:59 06/01/16 08:49 100 MLS/HR Oxycodone/ Acetaminophen (Percocet 5-325mg Tab) 2 tab Q6H PRN PO 06/01/16 05:15 06/15/16 05:14 Review of Systems Review of Systems Constitutional: denies chills, denies diaphoresis, denies fever Eyes: reports: no symptoms ENT: reports: no symptoms reported Cardiovascular: denies: chest pain, chest pressure, chest tightness Respiratory: denies: cough, short of breath, stridor Gastrointestinal: denies abdominal pain, denies constipation, denies diarrhea, nausea, denies vomiting Genitourinary - Female: reports: no symptoms Musculoskeletal: denies back pain, denies joint pain, denies joint swelling, denies muscle stiffness Integumentary: change in color, denies change in hair/nails, denies dryness, denies lumps, rash Neurologic: reports: no symptoms Psychiatric: reports: no symptoms Endocrine: no symptoms Hematologic / Lymphatic: no symptoms Allergic / Immunologic: no symptoms Physical Exam Physical Exam General Appearance: + WD/WN, No distress Ears, Nose, Throat: + normal ENT inspection Neck: No lymphadenophy, No stiffness, No tenderness, No tracheal deviation Respiratory: No decreased breath sounds, No rhonchi, No stridor, No wheezing Cardiovascular: No abnormal rate, No diastolic murmur, No gallop/S3, No gallop/ S4, No systolic murmur Abdomen: + tenderness, No abnormal bowel sounds, No distension, No hernia Extremities: + swelling, No deformity Neurologic/Psychiatric: No disorientation, No motor deficit/weakness, No sensory deficit Skin Characteristics: No diaphoresis, No jaundice, No pallor, No rash Lymphatic: No abnormal adenopathy Diagnostics Labs Labs Results Past 24 Hours Test 05/31/16 20:45 05/31/16 23:55 06/01/16 07:03 Range/Units White Blood Count 10.63 4.8-10.8 K/uL Red Blood Count 4.98 4.2-5.4 M/uL Hemoglobin 14.1 12.0-16.0 g/dL Hematocrit 42.1 37-47 % Mean Corpuscular Volume 84.5 80-100 fL Mean Corpuscular Hemoglobin 28.3 25-34 pg Mean Corpuscular Hemoglobin Concent 33.5 32-36 g/dl Platelet Count 327 130-400 K/uL Mean Platelet Volume 11.1 7.4-10.4 fL Neutrophils (%) (Auto) 64.0 % Lymphocytes (%) (Auto) 27.9 % Monocytes (%) (Auto) 5.1 % Eosinophils (%) (Auto) 2.2 % Basophils (%) (Auto) 0.6 % Neutrophils # (Auto) 6.81 1.4-6.5 K/uL Lymphocytes # (Auto) 2.97 1.2-3.4 K/uL Monocytes # (Auto) 0.54 0.11-0.59 K/uL Eosinophils # (Auto) 0.23 0-0.5 K/uL Basophils # (Auto) 0.06 0-0.2 K/uL RDW Standard Deviation 40.3 36.4-46.3 fL RDW Coefficient of Variation 13.3 11.5-14.5 % Immature Granulocyte % (Auto) 0.2 % Immature Granulocyte # (Auto) 0.02 0.00-0.02 K/uL Erythrocyte Sedimentation Rate 30 0-21 mm/hr Sodium Level 140 136-145 mmol/L Potassium Level 3.7 3.5-5.1 mmol/L Chloride Level 106 98-107 mmol/L Carbon Dioxide Level 28 21-32 mmol/L Anion Gap 6.0 3-11 mmol/L Blood Urea Nitrogen 11 7-18 mg/dl Creatinine 1.10 0.60-1.20 mg/dl Est Creatinine Clear Calc Drug Dose 126.3 ml/min Estimated GFR () 83.1 Estimated GFR (Non- 71.7 BUN/Creatinine Ratio 9.6 10-20 Random Glucose 88 70-99 mg/dl Calcium Level 8.5 8.5-10.1 mg/dl Total Bilirubin 0.4 0.2-1 mg/dl Direct Bilirubin < 0.1 0-0.2 mg/dl Aspartate Amino Transf (AST/SGOT) 20 15-37 U/L Alanine Aminotransferase (ALT/SGPT) 38 12-78 U/L Alkaline Phosphatase 65 45-117 U/L C-Reactive Protein 1.37 0-0.29 mg/dl Total Protein 8.3 6.4-8.2 gm/dl Albumin 3.6 3.4-5.0 gm/dl Lipase 108 73-393 U/L Human Chorionic Gonadotropin, Qual NEG NEG Lyme Disease IgG Antibody NEG NEG Lyme Disease IgM Antibody NEG NEG Urine Color YELLOW Urine Appearance CLEAR CLEAR Urine pH 7.0 4.5-7.5 Urine Specific [place] 1.030 1.000-1.030 Urine Protein NEG NEG Urine Glucose (UA) NEG NEG Urine Ketones NEG NEG Urine Occult Blood NEG NEG Urine Nitrite NEG NEG Urine Bilirubin NEG NEG Urine Urobilinogen NEG NEG Urine Leukocyte Esterase NEG NEG Prothrombin Time 10.0 9.0-12.0 SECONDS Prothromb Time International Ratio 0.9 0.9-1.1 Activated Partial Thromboplast Time 27.3 21.0-31.0 SECONDS Partial Thromboplastin Ratio 1.1 Diagnostic Radiology Diagnostic Radiology CT SCAN OF THE ABDOMEN AND PELVIS WITH IV CONTRAST CLINICAL HISTORY: Abdominal pannus abscess. COMPARISON STUDY: No priors. TECHNIQUE: Following the IV administration of 120 cc of Optiray 320, CT scan of the abdomen and pelvis is performed from the lung bases to the proximal femora. Images are reviewed in the axial, sagittal, and coronal planes. IV contrast was administered without complication. Automated dose control exposure was utilized. The examination is degraded by large body habitus, and by streak artifact from the body wall abutting the CT gantry. CT DOSE: 2414.05 mGy.cm FINDINGS: Lung bases: The heart is normal in size and without pericardial effusion. The lung bases are clear. There is a tiny hiatal hernia. Liver: The contrast-enhanced liver is enlarged, measuring 23.5 cm in length. The liver demonstrates diffusely diminished attenuation consistent with severe hepatic steatosis. There is no intrahepatic biliary ductal dilatation. The hepatic veins and portal veins are patent. Gallbladder: Surgically absent noting clips in the gallbladder fossa. Spleen: The spleen is enlarged, measuring 15.5 cm in length. Pancreas: Unremarkable. Adrenal glands: Unremarkable. Kidneys: The contrast enhanced kidneys are normal in size and without hydronephrosis. The kidneys enhance symmetrically. Abdominal vasculature: The abdominal aorta is normal in course and caliber. Bowel: The small bowel and colon are normal in course and caliber. The appendix is well-visualized and normal. Peritoneum: There is no intraperitoneal free air or abdominal ascites. There is a small fat-containing umbilical hernia. Lymphadenopathy: None. Pelvic viscera: The bladder, uterus, and adnexa are normal as visualized. There are small ovarian follicles. Skeletal structures: No lytic or blastic lesions are seen. Soft tissues: There is dermal thickening seen in the inferior aspect of the abdominal pain is with mild soft tissue induration on the right. A small cutaneous defect is suggested. No organized fluid collection is seen to indicate abscess. IMPRESSION: 1. There are no acute infectious or inflammatory findings in the abdomen or pelvis. 2. There is dermal thickening with surrounding induration seen within the inferior aspect of the ventral abdominal pannus. A small cutaneous defect suggests a wound or ulceration. The appearance is typical for cellulitis. No organized fluid collection is seen to indicate abscess. 3. Hepatomegaly and severe hepatic steatosis. 4. Splenomegaly. 5. Additional findings as above. Impression Assessment and Plan Assessment and Plan Abdominal wall celluilitis -no abscess -would con't IV abx until sensitivities return to switch to oral -no surgical issues -will sign off
[2016-06-01] MEDS ORDERED: CLIN300C10 PO ×2 (15:27)
[2016-06-01 15:46] VITALS: BP 126/89; PULSE 101; TEMP 36.6; O2SAT 97
[2016-06-01] MEDS ORDERED: NURSING VERBAL MED ORDER ONE (16:00)
--- NOTE | 2016-06-01 17:51 | Discharge Instructions ---
Discharge Instructions Date of Service Jun 01, 2016. Admission Reason for Admission: Cellulitis And Abscess Of Unsp Site Discharge Discharge Diagnosis / Problem: 1. Abdominal wall cellulitis status post I & D Discharge Goals Goal(s): Prevent Disease Progression Activity Recommendations Activity Limitations: resume your previous activity (as tolerated) . Instructions / Follow-Up Instructions / Follow-Up New medication: Clindamycin 450 mg PO TID x 10 days FOLLOW UP Advised to follow up with PCP in 1 week Current Hospital Diet Patient's current hospital diet: Regular Diet Discharge Diet Recommended Diet: Low Fat Diet Pending Studies Studies pending at discharge: no Medical Emergencies . Who to Call and When: Medical Emergencies: If at any time you feel your situation is an emergency, please call 911 immediately. . Non-Emergent Contact Non-Emergency issues call your: Primary Care Provider . . "Provider Documentation" section prepared by Puja Hernandez. VTE Core Measure Inpt VTE Proph given/why not?: Enoxaparin (Lovenox)SQ
--- NOTE | 2016-06-01 17:56 | Discharge Summary ---
Discharge Summary Date of Service Jun 01, 2016. Discharge Summary Admission Date: May 31, 2016 at 22:07 Discharge Date: Jun 01, 2016 Discharge Disposition: Home (Left against medical advice) Principal Diagnosis: 1. Abdominal wall cellulitis status post I & D Secondary Diagnoses/Problems: 1. Morbid obesity Procedures: IV antibiotics Consultations: General surgery ID (Unable to see patient as she left AMA) Pending Studies/Follow-Up: New medication: Clindamycin 450 mg PO TID for 10 days FOLLOW UP Advised to follow up with PCP in 1 week Medication Reconciliation New Medications: Clindamycin Hcl (Clindamycin Hcl) 300 Mg Cap 450 MG PO TID for 10 Days, #30 TAB Discontinued Medications: Cephalexin Monohydrate (Keflex) 500 Mg Cap 500 MG PO QID for 7 Days, #28 CAP Sulfa/Trimethoprim (Bactrim Ds 800MG/160MG) Tab 2 TAB PO BID for 7 Days, #14 TAB Admission Information HPI (per Admitting provider): 20 YO female followed by Dr. Reina. History of mild asthma and obesity. Developed abdominal abscess about 7 days ago. Became more painful. Evaluated in ED on 05/29. CT showed dermal thickening and induration. I & D performed. Discharged on TMP/sulfa + cephalexin. Increasing drainage from I&D wound over past 2 days. Increasing erythema and pain. No fever, chills, sweats. Loose stools since starting antibiotics. . Physical Exam (per Admitting): General Appearance: no apparent distress, + obese Head: normocephalic, atraumatic Eyes: normal inspection, PERRL, EOMI, sclerae normal ENT: normal ENT inspection, hearing grossly normal Neck: supple, no adenopathy, thyroid normal, no JVD, trachea midline Respiratory/Chest: lungs clear, no respiratory distress, no accessory muscle use Cardiovascular: regular rate, rhythm, no edema, no gallop, no JVD, no murmur Abdomen/GI: normal bowel sounds, non tender, soft, no organomegaly, no pulsatile mass Extremities/Musculoskelatal: no calf tenderness, + pertinent finding ( chronic-appearing lymphedema) 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 Tmax 37.9, Erythema, Tenderness has improved, no more discharge from site. -Wound culture from I&D on 05/2316 growing MSSA and coag neg Staph pansensitive, so has been on right antibiotics -S/P IV Vancomycin in ED- Flushing --> Changed to Daptomycin per admitting physician -ID consulted, General surgery consulted. Per general surgery- cellulitis and no abscess so no indication for surgery. ID was unable to see patient as patient left AMA. PLAN: Clindamycin 450 mg PO TID x 10 days prescribed on basis of I & D culture sensitivity results on 05/29/16. LOOSE STOOLS Likely secondary to antibiotics -C diff- pending collection MORBID OBESITY -Counseling about weight loss done VTE PROPHYLAXIS -Moderate risk for VTE. -SQ enoxaparin. -Ambulate. DISPOSITION Left against medical advice Patient was adamant about leaving AMA. Explained the risks of doing so- deterioration of current clinical condition. Understands but would want to leave. Family Medicine follow-up with Dr. Reina Total time spent on discharge = 28 minutes This includes examination of the patient, discharge planning, medication reconciliation, and communication with other providers. Discharge Instructions Left against medical advice
--- NOTE | 2016-06-01 18:02 | Medical Consult ---
Consultation Date of Consultation: Jun 01, 2016. Attending Physician: Maria Ines Hughes M.D. Reason for Consultation: cellulitis History of Present Illness 20-year-old female with history of obesity and bipolar disorder, otherwise in good health, states that she has had a small "pimple" on her lower abdominal wall for approximately 6 months. She frequently picks at the area, and approximately 1 week ago, she developed progressively worsening pain, redness, and swelling surrounding the area. She was seen in the emergency department where a small superficial abscess was drained, and cultures have now grown a methicillin sensitive Staph aureus as well as coagulase negative Staph and Corynebacterium. She was treated with oral Bactrim and cephalexin but symptoms worsened and she was admitted to the hospital for further management. She has been treated with combination of vancomycin and ceftriaxone with improvement with some regression of the erythema. Having some loose stools, remains afebrile. Past Medical/Surgical History Medical Problems: (1) Abdominal wall cellulitis Status: Acute (2) Cellulitis of abdominal wall Status: Acute (3) Cutaneous abscess of abdominal wall Status: Acute Medical Problems: (1) Allergic rhinitis (2) Asthma (3) Obesity Surgical Problems: (1) Status post cholecystectomy Family History Diabetes mellitus FATHER Heart disease MOTHER Social History Smoking Status: Current Every Day Smoker Alcohol Use: none Drug Use: none Marital Status: single Housing Status: lives with family Occupation Status: unemployed Allergies Coded Allergies: No Known Allergies (Unverified , 03/11/15) Current Inpatient Medications Current Inpatient Medications Medications (Trade) Dose Ordered Sig/Geovanny Route Start Time Stop Time Status Last Admin Dose Admin Acetaminophen (Tylenol Tab) 650 mg Q4H PRN PO 05/31/16 22:15 06/30/16 22:14 05/31/16 23:33 650 MG Enoxaparin Sodium 40 mg 40 mg QAM SQ 06/01/16 09:00 07/01/16 08:59 Daptomycin/Sodium Chloride (Cubicin IV/Nss 50ml) 63 ml @ 100 mls/hr DAILY@0900 IV 06/01/16 09:00 06/11/16 08:59 06/01/16 08:49 100 MLS/HR Oxycodone/ Acetaminophen (Percocet 5-325mg Tab) 2 tab Q6H PRN PO 06/01/16 05:15 06/15/16 05:14 Review of Systems all systems were reviewed and are negative except as per HPI Physical Exam Date Time Temp Pulse Resp B/P Pulse Ox O2 Delivery O2 Flow Rate FiO2 06/01/16 15:46 36.6 101 16 126/89 97 06/01/16 08:03 36.5 90 18 104/71 97 06/01/16 08:00 Room Air 05/31/16 23:15 37.0 113 20 146/92 99 Room Air 05/31/16 22:51 98 20 96 05/31/16 21:48 103 20 150/83 97 Room Air 05/31/16 20:09 37.3 122 20 140/87 95 Room Air General Appearance: WD/WN, no apparent distress, + obese Head: normocephalic, atraumatic Eyes: normal inspection, EOMI, sclerae normal ENT: normal ENT inspection, hearing grossly normal, pharynx normal Neck: supple, no adenopathy, thyroid normal, trachea midline Respiratory/Chest: chest non-tender, lungs clear, normal breath sounds, no respiratory distress Cardiovascular: regular rate, rhythm, no gallop, no murmur Abdomen/GI: normal bowel sounds, non tender, soft, no organomegaly Back: normal inspection, no CVA tenderness Extremities/Musculoskelatal: normal inspection, normal capillary refill Neurologic/Psych: alert, oriented x 3 Skin: normal color, warm/dry, no rash, + pertinent finding ( erythema involving lower quadrant of abdomen, appears to be receding from prior markings) Lymphatic: no adenopathy Laboratory Results RUN DATE: 06/01/16 [facility] PAGE 1 RUN TIME: 906 Specimen Inquiry [facility]: [id number] LOC: [facility] [place] # : [id number] AGE/SX: 20/F ROOM: REG : 05/29/[address]: Layo Reyez M. : 1995 BED: DIS : STATUS: DEP ER TLOC: SPEC #: [id number] RADHA: 05/29/16 STATUS: COMP REQ #: [id number] RECD: 05/29/[address]: Layo Reyez M.D. SOURCE: DRAIN-SURF ENTR: 05/29/[address]: Jose Steel M.D. SPDESC: ABD ORDERED: SURF WND [facility] COMMENTS: Specimen Comment lizyess, chaparroith abdomen. Has Specimen Been Obtained/Collected? Y Procedure Result Verified Site GRAM STAIN Final 05/30/16-075 RESULT MANY POLYS MANY GRAM POSITIVE COCCI SURFACE WOUND CULTURE Final 06/01/16 Organism 1 STAPHYLOCOCCUS AUREUS QUANITY FEW SENS SENSITIVITY TO FOLLOW +MIXWOUND PLUS MODERATE COUNTS OF PROBABLE SKIN RAUL Organism 2 COAG NEG STAPHYLOCOCCUS QUANITY FEW SENS NO SENSITIVITY TO FOLLOW Organism 3 CORYNEBACTERIUM SPECIES QUANITY FEW SENS NO SENSITIVITY TO FOLLOW 1. STAPHYLOCOCCUS AUREUS Target Route Dose RX AB Cost M.I.C. IQ ------ ----- ------ -- ------ -------- - ------ TRIMET/SULFA S <=0.5/ 9.5 * OXACILLIN S 0.5 VANCOMYCIN S 2 ERYTHROMYCIN S <=0.5 TETRACYCLINE S <=4 CLINDAMYCIN S <=0.5 DAPTOMYCIN S <=0.5 S = SENSITIVE I = INTERMEDIATE R = RESISTANT END OF REPORT Last 24 Hours Test 05/31/16 20:45 05/31/16 23:55 06/01/16 07:03 White Blood Count 10.63 K/uL Red Blood Count 4.98 M/uL Hemoglobin 14.1 g/dL Hematocrit 42.1 % Mean Corpuscular Volume 84.5 fL Mean Corpuscular Hemoglobin 28.3 pg Mean Corpuscular Hemoglobin Concent 33.5 g/dl Platelet Count 327 K/uL Mean Platelet Volume 11.1 fL Neutrophils (%) (Auto) 64.0 % Lymphocytes (%) (Auto) 27.9 % Monocytes (%) (Auto) 5.1 % Eosinophils (%) (Auto) 2.2 % Basophils (%) (Auto) 0.6 % Neutrophils # (Auto) 6.81 K/uL Lymphocytes # (Auto) 2.97 K/uL Monocytes # (Auto) 0.54 K/uL Eosinophils # (Auto) 0.23 K/uL Basophils # (Auto) 0.06 K/uL RDW Standard Deviation 40.3 fL RDW Coefficient of Variation 13.3 % Immature Granulocyte % (Auto) 0.2 % Immature Granulocyte # (Auto) 0.02 K/uL Erythrocyte Sedimentation Rate 30 mm/hr Sodium Level 140 mmol/L Potassium Level 3.7 mmol/L Chloride Level 106 mmol/L Carbon Dioxide Level 28 mmol/L Anion Gap 6.0 mmol/L Blood Urea Nitrogen 11 mg/dl Creatinine 1.10 mg/dl Est Creatinine Clear Calc Drug Dose 126.3 ml/min Estimated GFR () 83.1 Estimated GFR (Non- 71.7 BUN/Creatinine Ratio 9.6 Random Glucose 88 mg/dl Calcium Level 8.5 mg/dl Total Bilirubin 0.4 mg/dl Direct Bilirubin < 0.1 mg/dl Aspartate Amino Transf (AST/SGOT) 20 U/L Alanine Aminotransferase (ALT/SGPT) 38 U/L Alkaline Phosphatase 65 U/L C-Reactive Protein 1.37 mg/dl Total Protein 8.3 gm/dl Albumin 3.6 gm/dl Lipase 108 U/L Human Chorionic Gonadotropin, Qual NEG Lyme Disease IgG Antibody NEG Lyme Disease IgM Antibody NEG Urine Color YELLOW Urine Appearance CLEAR Urine pH 7.0 Urine Specific [place] 1.030 Urine Protein NEG Urine Glucose (UA) NEG Urine Ketones NEG Urine Occult Blood NEG Urine Nitrite NEG Urine Bilirubin NEG Urine Urobilinogen NEG Urine Leukocyte Esterase NEG Prothrombin Time 10.0 SECONDS Prothromb Time International Ratio 0.9 Activated Partial Thromboplast Time 27.3 SECONDS Partial Thromboplastin Ratio 1.1 Endcc: [~ rep ct add3]] CT SCAN OF THE ABDOMEN AND PELVIS WITH IV CONTRAST CLINICAL HISTORY: Abdominal pannus abscess. COMPARISON STUDY: No priors. TECHNIQUE: Following the IV administration of 120 cc of Optiray 320, CT scan of the abdomen and pelvis is performed from the lung bases to the proximal femora. Images are reviewed in the axial, sagittal, and coronal planes. IV contrast was administered without complication. Automated dose control exposure was utilized. The examination is degraded by large body habitus, and by streak artifact from the body wall abutting the CT gantry. CT DOSE: 2414.05 mGy.cm FINDINGS: Lung bases: The heart is normal in size and without pericardial effusion. The lung bases are clear. There is a tiny hiatal hernia. Liver: The contrast-enhanced liver is enlarged, measuring 23.5 cm in length. The liver demonstrates diffusely diminished attenuation consistent with severe hepatic steatosis. There is no intrahepatic biliary ductal dilatation. The hepatic veins and portal veins are patent. Gallbladder: Surgically absent noting clips in the gallbladder fossa. Spleen: The spleen is enlarged, measuring 15.5 cm in length. Pancreas: Unremarkable. Adrenal glands: Unremarkable. Kidneys: The contrast enhanced kidneys are normal in size and without hydronephrosis. The kidneys enhance symmetrically. Abdominal vasculature: The abdominal aorta is normal in course and caliber. Bowel: The small bowel and colon are normal in course and caliber. The appendix is well-visualized and normal. Peritoneum: There is no intraperitoneal free air or abdominal ascites. There is a small fat-containing umbilical hernia. Lymphadenopathy: None. Pelvic viscera: The bladder, uterus, and adnexa are normal as visualized. There are small ovarian follicles. Skeletal structures: No lytic or blastic lesions are seen. Soft tissues: There is dermal thickening seen in the inferior aspect of the abdominal pain is with mild soft tissue induration on the right. A small cutaneous defect is suggested. No organized fluid collection is seen to indicate abscess. IMPRESSION: 1. There are no acute infectious or inflammatory findings in the abdomen or pelvis. 2. There is dermal thickening with surrounding induration seen within the inferior aspect of the ventral abdominal pannus. A small cutaneous defect suggests a wound or ulceration. The appearance is typical for cellulitis. No organized fluid collection is seen to indicate abscess. 3. Hepatomegaly and severe hepatic steatosis. 4. Splenomegaly. 5. Additional findings as above. Assessment & Plan patient with abdominal wall cellulitis with methicillin sensitive Staph aureus. Current antibiotics would be appropriate pending final culture results , hopefully patient can be transitioned to oral antibiotics tomorrow if continues to improve. Will discuss with all involved. Will follow.
[2016-06-01] MEDS ORDERED: CEFTRIAXONE SOD INJ 2,000 MG in DEXTROSE 5% 50ML 50 ML IV SCH (20:00)
== END 2016-06-01 17:07 | disposition left against medical advice (07) | DRG 603 ==
LOC: ENRESERVTM → ENRESERVDT → C.EDB 20:04 → C.MS2W 22:07
PROVIDERS: ADMIT Hospitalist; ATTEND Hospitalist
DX: L03.311 Cellulitis of abdominal wall (principal); Z68.43 Body mass index [BMI] 50.0-59.9, adult; B95.61 Methicillin susceptible Staphylococcus aureus infection as the cause of diseases classified elsewhere; R19.7 Diarrhea, unspecified; E66.01 Morbid (severe) obesity due to excess calories; F17.200 Nicotine dependence, unspecified, uncomplicated; Z90.49 Acquired absence of other specified parts of digestive tract; Z83.3 Family history of diabetes mellitus; Z82.49 Family history of ischemic heart disease and other diseases of the circulatory system

== ENCOUNTER 2017-10-08 17:58 | Emergency (ER) | payer OTHER ==
[~2017-10-08 17:58] MED LIST changes: -CEPH500C PO; +CLIN300C10 PO; -SULF800T23 PO
[2017-10-08 18:02] VITALS: TEMP 37.1; Ht 165.1 cm
[2017-10-08] MEDS ORDERED: ONDANSETRON INJ 2 MG/ML 2 ML VIAL IV STA (18:25)
[2017-10-08] MEDS ORDERED: SODIUM CHLORIDE 0.9% 1000ML 1,000 ML IV STA (18:25)
[2017-10-08] MEDS ORDERED: KETOROLAC TROMETHAMINE 30 MG/ML VIAL IV STA (18:25)
[2017-10-08 19:32] LABS: BASO % 0.5 %; BASO ABS # 0.06 K/uL (0-0.2); EOS % 1.7 %; EOS ABS # 0.19 K/uL (0-0.5); HEMATOCRIT 42.9 % (37-47); HEMOGLOBIN 13.9 g/dL (12.0-16.0); IG# 0.02 K/uL (0.00-0.02); LYMPH % 29.9 %; LYMPH ABS # 3.27 K/uL (1.2-3.4); MEAN CELL VOLUME 84.8 fL (80-100); MEAN CORPUSCULAR HEMOGLOBIN 27.5 pg (25-34); MEAN CORPUSCULAR HGB CONC 32.4 g/dl (32-36); MEAN PLATELET VOLUME 10.9 fL (7.4-10.4); MONO % 6.2 %; MONO ABS # 0.68 K/uL (0.11-0.59); NEUT % 61.5 %; NEUT ABS # 6.73 K/uL (1.4-6.5); PLATELET COUNT 321 K/uL (130-400); RED CELL DISTRIBUTION WIDTH CV 13.7 % (11.5-14.5); RED CELL DISTRIBUTION WIDTH SD 41.9 fL (36.4-46.3); WHITE BLOOD COUNT 10.95 K/uL (4.8-10.8)
[2017-10-08 19:49] LABS: BLOOD UREA NITROGEN 8 mg/dl (7-18); CALCIUM 8.7 mg/dl (8.5-10.1); CARBON DIOXIDE 27 mmol/L (21-32); CREATININE 0.94 mg/dl (0.60-1.20); GLUCOSE 82 mg/dl (70-99); POTASSIUM 3.8 mmol/L (3.5-5.1); SODIUM 140 mmol/L (136-145)
--- NOTE | 2017-10-08 20:17 | DIAGNOSTIC IMAGING REPORT ---
ULTRASOUND OF THE ABDOMINAL WALL CLINICAL HISTORY: Cellulitis. COMPARISON STUDY: Abdominal CT dated 05/29/2016. FINDINGS: Real-time, grayscale, and color flow sonography of the abdominal wall is performed to the indicated site of interest. Subcutaneous soft tissue edema is noted. There is mild hyperemia seen in this region on color imaging. There is a 0.9 x 0.4 x 1.0 cm pocket of complex fluid identified inferior to the umbilicus at the indicated site of interest. IMPRESSION: 1. There is diffuse subcutaneous soft tissue edema and mild hyperemia identified in the abdominal pannus, likely corresponding to the reported clinical history of cellulitis. 2. There is a 1.0 cm pocket of complex fluid within the subcutaneous fat at the indicated site of interest. This may represent a tiny developing abscess. Electronically signed by: Rm Driscoll M.D. 10/08/2017 8:16 PM Dictated Date/Time: 10/08/2017 8:14 PM
[2017-10-08] MEDS ORDERED: CEFTRIAXONE SOD INJ 1 GM ADDVIAL IV STA (20:23)
[2017-10-08] MEDS ORDERED: CLINDAMYCIN IV 900 MG in DEXTROSE 5% 100ML 100 ML IV ONE (20:30)
[2017-10-08] MEDS ORDERED: CLIN1CAP51 PO (20:57)
[2017-10-08] MEDS ORDERED: CLINDAMYCIN 150MG HOME PACK PO ONE (21:00)
[2017-10-08 22:06] VITALS: BP 124/72; PULSE 72; O2SAT 98
--- NOTE | 2017-10-09 00:50 | EMERGENCY ROOM VISIT NOTE ---
History First contact with patient: 18:18 Chief Complaint: INFECTION Stated Complaint: STOMACH INFECTION, SWOLLEN, PAINFUL Nursing Triage Summary: Patient states she has a infection on her lower abdomen. Infection started about 2 weeks ago. Patient states it looks like a abscess if forming that might need drained. History of Present Illness The patient is a 22 year old female who presents to the Emergency Room with complaints of an abdominal wall infection. The patient reports that she started to notice some redness and pain 2 weeks ago. The patient reports a prior history of recurrent abdominal wall infections. She was admitted to our hospital in May 2016 for her last infection. The patient has not had any general surgery follow-up after her admission. The patient reports that the oral medications that she was treated with the last time did not work, and is requesting the same medication that she got with her last discharge from the hospital. She cannot recall the name of the antibiotic. She currently rates her pain an 8 out of 10. She denies any fevers or chills. Review of Systems HEENT: Denies dizziness, visual problems, hearing loss, tinnitus. Denies difficulty swallowing or oral lesions. PULMONARY: Denies cough, shortness of breath, sputum production or hemoptysis. CARDIOVASCULAR: Denies chest pain, palpitations, dyspnea on exertion, orthopnea or peripheral edema. GASTROINTESTINAL: Denies diarrhea, constipation, nausea or vomiting, otherwise see HPI. GENITOURINARY: Denies dysuria, frequency, urgency or nocturia. NEUROLOGIC: Denies history of epilepsy, CVA, TIA or chronic headaches. MUSCULOSKELETAL: Denies history of joint tenderness/swelling. SKIN: Denies rashes or lesions. PSYCHIATRIC: Denies history of depression or mental illness. ENDOCRINE: Denies history of diabetes or thyroid disorders. Past Medical/Surgical History Medical Problems: (1) Allergic rhinitis (2) Asthma (3) Obesity Surgical Problems: (1) Status post cholecystectomy Family History Diabetes mellitus FATHER Heart disease MOTHER Social History Smoking Status: Current Every Day Smoker Alcohol Use: occasionally Drug Use: none Marital Status: single Housing Status: lives with family Occupation Status: unemployed Current/Historical Medications Scheduled Clindamycin HCl (Clindamycin HCl), 3 CAP PO TID Physical Exam Vital Signs Date Time Temp Pulse Resp B/P (MAP) Pulse Ox O2 Delivery O2 Flow Rate FiO2 10/08/17 22:06 72 18 124/72 98 Room Air 8/2/18 20:05 98 18 134/76 98 Room Air 10/08/17 18:02 37.1 109 18 149/96 98 Room Air Physical Exam CONSTITUTIONAL: Morbidly obese female, alert and oriented X 3 with positive affect. Patient does not appear acutely ill or toxic. HEENT: Normocephalic, atraumatic. Pupils equal, round and reactive. NECK: Full active range of motion without discomfort. RESPIRATORY: Clear to auscultation bilaterally with no wheezing, crackles, rhonchi or stridor. CARDIOVASCULAR: Regular rate and rhythm with no murmurs, rubs or gallops. GASTROINTESTINAL: Abdomen is protuberant and soft. Large pannus is present. Patient has notable pannus erythema with a palpable area of induration approximately 1 cm in diameter. There is otherwise no underlying peritoneal signs. Margins were marked with a marker. No rigidity, guarding or rebound. MUSCULOSKELETAL: Full range of motion of all joints without discomfort. INTEGUMENTARY: No additional rashes or other significant dermatologic conditions noted, except as noted in the previous section. NEUROLOGIC: No focal neurologic deficits noted. Medical Decision & Procedures ER Provider Diagnostic Interpretation: Abdominal ultrasound shows a 1 cm of fluid. Radiologist report is as follows: ULTRASOUND OF THE ABDOMINAL WALL CLINICAL HISTORY: Cellulitis. COMPARISON STUDY: Abdominal CT dated 05/29/2016. FINDINGS: Real-time, grayscale, and color flow sonography of the abdominal wall is performed to the indicated site of interest. Subcutaneous soft tissue edema is noted. There is mild hyperemia seen in this region on color imaging. There is a 0.9 x 0.4 x 1.0 cm pocket of complex fluid identified inferior to the umbilicus at the indicated site of interest. IMPRESSION: 1. There is diffuse subcutaneous soft tissue edema and mild hyperemia identified in the abdominal pannus, likely corresponding to the reported clinical history of cellulitis. 2. There is a 1.0 cm pocket of complex fluid within the subcutaneous fat at the indicated site of interest. This may represent a tiny developing abscess. Laboratory Results 10/08/17 19:05 Red Blood Count 5.06, Mean Corpuscular Volume 84.8, Mean Corpuscular Hemoglobin 27.5, Mean Corpuscular Hemoglobin Concent 32.4, Mean Platelet Volume 10.9, Neutrophils (%) (Auto) 61.5, Lymphocytes (%) (Auto) 29.9, Monocytes (%) (Auto) 6.2, Eosinophils (%) (Auto) 1.7, Basophils (%) (Auto) 0.5, Neutrophils # (Auto) 6.73, Lymphocytes # (Auto) 3.27, Monocytes # (Auto) 0.68, Eosinophils # (Auto) 0.19, Basophils # (Auto) 0.06 10/08/17 19:05 Test 10/08/17 19:05 10/08/17 19:24 White Blood Count 10.95 K/uL (4.8-10.8) Red Blood Count 5.06 M/uL (4.2-5.4) Hemoglobin 13.9 g/dL (12.0-16.0) Hematocrit 42.9 % (37-47) Mean Corpuscular Volume 84.8 fL (80-100) Mean Corpuscular Hemoglobin 27.5 pg (25-34) Mean Corpuscular Hemoglobin Concent 32.4 g/dl (32-36) Platelet Count 321 K/uL (130-400) Mean Platelet Volume 10.9 fL (7.4-10.4) Neutrophils (%) (Auto) 61.5 % Lymphocytes (%) (Auto) 29.9 % Monocytes (%) (Auto) 6.2 % Eosinophils (%) (Auto) 1.7 % Basophils (%) (Auto) 0.5 % Neutrophils # (Auto) 6.73 K/uL (1.4-6.5) Lymphocytes # (Auto) 3.27 K/uL (1.2-3.4) Monocytes # (Auto) 0.68 K/uL (0.11-0.59) Eosinophils # (Auto) 0.19 K/uL (0-0.5) Basophils # (Auto) 0.06 K/uL (0-0.2) RDW Standard Deviation 41.9 fL (36.4-46.3) RDW Coefficient of Variation 13.7 % (11.5-14.5) Immature Granulocyte % (Auto) 0.2 % Immature Granulocyte # (Auto) 0.02 K/uL (0.00-0.02) Anion Gap 5.0 mmol/L (3-11) Estimated GFR () 99.1 Estimated GFR (Non- 85.5 BUN/Creatinine Ratio 8.3 (10-20) Calcium Level 8.7 mg/dl (8.5-10.1) Bedside Lactic Acid Venous 0.61 mmol/L (0.90-1.70) The above labs were reviewed, showing a mild leukocytosis. Lactate is normal. Medications Administered Medications (Trade) Dose Ordered Sig/Geovanny Route Start Time Stop Time Status Last Admin Dose Admin Ondansetron HCl (Zofran Inj) 4 mg NOW STAT IV 10/08/17 18:25 10/08/17 18:30 DC 10/08/17 19:16 4 MG Ketorolac Tromethamine (Toradol Inj) 30 mg NOW STAT IV 10/08/17 18:25 10/08/17 18:30 DC 10/08/17 19:16 30 MG Sodium Chloride 1,000 ml @ 999 mls/hr Q1H1M STAT IV 10/08/17 18:25 10/08/17 19:25 DC 10/08/17 19:16 999 MLS/HR Clindamycin Phosphate 900 mg/ Dextrose 106 ml @ 100 mls/hr ONE ONCE IV 10/08/17 20:30 10/08/17 21:33 DC 10/08/17 20:30 100 MLS/HR Clindamycin HCl (Cleocin 150MG Home Pack) 1 homepack UD ONCE PO 10/08/17 21:00 10/08/17 21:01 DC 10/08/17 21:00 1 HOMEPACK Procedure 1. IV hydration: The patient was administered a normal saline 1 her bolus 2. IV medications: Toradol 30 mg and Zofran 4 mg IVP. She was also administered clindamycin 900 mg IV infusion. ED Course Patient history and physical exam were performed. Nurse's notes were reviewed. Vital signs were reviewed, showing an elevated blood pressure 149/96. I also reviewed documentation from the patient's last admission in May 2016 for an abdominal wall cellulitis. Wound cultures from the preceding I&D procedure shows pansensitivity. Infectious disease consult with Dr. Warner recommended outpatient clindamycin, which the patient is requesting for her treatment today. IV access was established, and labs were drawn. The patient has a mild leukocytosis with out other electrolyte abnormalities. [id number] lactate is normal. An abdominal wall ultrasound does not show any collection of fluid amenable to I&D procedure. The patient was administered IV fluids, analgesics, antiemetics and IV clindamycin. The patient reported improvement of her symptoms. She will be provided a home pack and prescription for oral clindamycin 450 mg 3 times daily 10 days. She was instructed to return to the emergency department tomorrow for recheck, sooner with any progressively worsening infection. The patient was happy with plan of care, voiced understanding of all discharge instructions, and rated her discomfort a 4 out of 10 at the conclusion of my exam. Medical Decision I do not suspect sepsis. She has no drainable abscess at this time. I do feel that the patient warrants return evaluation for recheck. The patient has previously been treated successfully with IV and oral clindamycin. [employer] Monitoring Program Search Results: patient reviewed within database, no issues identified Medication Reconcilliation Current Medication List: was personally reviewed by me Blood Pressure Screening Patient's blood pressure: Elevated blood pressure Blood pressure disposition: Elevated BP felt to be situational, Did not require urgent referral Impression Primary Impression: Abdominal wall cellulitis Departure Information Dispostion Home / Self-Care Condition GOOD Prescriptions Clindamycin HCl (Clindamycin HCl) 150 Mg Cap 3 CAP PO TID for 10 Days, #90 CAP Prov: Kirt Mena PA 10/08/17 Forms HOME CARE DOCUMENTATION FORM, IMPORTANT VISIT INFORMATION Patient Instructions My [facility] Additional Instructions Take clindamycin antibiotics as prescribed (450 mg 3 times daily). Ibuprofen 800 mg and/or Tylenol 1000 mg every 8 hours. You may also alternate these medications for more effective pain relief: Ibuprofen --4 HRS--> Tylenol --4 HRS--> ibuprofen --4 HRS--> Tylenol .... Return to the emergency department tomorrow for recheck and possible repeat IV antibiotics. Return sooner with any significantly worsening redness, fever or pain.
[2017-10-09] MEDS ORDERED: CLC/150 PO (06:43)
== END 2017-10-08 22:39 | disposition home or self-care (01) ==
LOC: C.EDB 18:00 → C.EDC 22:39
DX: L03.311 Cellulitis of abdominal wall (principal); D72.829 Elevated white blood cell count, unspecified; J45.909 Unspecified asthma, uncomplicated; F17.200 Nicotine dependence, unspecified, uncomplicated; R03.0 Elevated blood-pressure reading, without diagnosis of hypertension

== ENCOUNTER 2017-10-09 06:30 | Inpatient (IN) | payer OTHER ==
[~2017-10-09] VITALS: Ht 165.1 cm; Wt 203.0 kg
[~2017-10-09 06:30] MED LIST changes: +CLIN1CAP51 PO; -CLIN300C10 PO
[2017-10-09] MEDS ORDERED: CLC/150 PO (06:43)
[2017-10-09] MEDS ORDERED: SODIUM CHLORIDE 0.9% 1000ML 3,000 ML IV STA (06:57)
[2017-10-09] MEDS ORDERED: DAPTOmycin IV 600 MG in SODIUM CHLORIDE 0.9% 50ML 50 ML IV ONE (07:00)
[2017-10-09] MEDS ORDERED: OPTIRAY 320 IV PRN (07:15)
[2017-10-09 07:16] LABS: BASO % 0.4 %; BASO ABS # 0.05 K/uL (0-0.2); EOS % 0.6 %; EOS ABS # 0.08 K/uL (0-0.5); HEMATOCRIT 41.7 % (37-47); HEMOGLOBIN 13.5 g/dL (12.0-16.0); IG# 0.04 K/uL (0.00-0.02); LYMPH % 5.3 %; LYMPH ABS # 0.72 K/uL (1.2-3.4); MEAN CELL VOLUME 85.1 fL (80-100); MEAN CORPUSCULAR HEMOGLOBIN 27.6 pg (25-34); MEAN CORPUSCULAR HGB CONC 32.4 g/dl (32-36); MEAN PLATELET VOLUME 10.9 fL (7.4-10.4); MONO % 3.3 %; MONO ABS # 0.45 K/uL (0.11-0.59); NEUT % 90.1 %; NEUT ABS # 12.24 K/uL (1.4-6.5); PLATELET COUNT 289 K/uL (130-400); RED CELL DISTRIBUTION WIDTH CV 13.8 % (11.5-14.5); RED CELL DISTRIBUTION WIDTH SD 42.8 fL (36.4-46.3); WHITE BLOOD COUNT 13.58 K/uL (4.8-10.8)
[2017-10-09 07:22] LABS: CALCIUM 8.5 mg/dl (8.5-10.1); CREATININE 1.25 mg/dl (0.60-1.20); POTASSIUM 3.6 mmol/L (3.5-5.1)
--- NOTE | 2017-10-09 07:59 | DIAGNOSTIC IMAGING REPORT ---
ABDOMEN AND PELVIS CT WITH IV CONTRAST CT DOSE: 1896.32 mGy.cm HISTORY: Acute lower abdominal wall pain with cellulitis and possible abscess. eval lower abd wall cellulitis ? abscess TECHNIQUE: Multiaxial CT images of the abdomen and pelvis were performed following the use of intravenous contrast. A dose lowering technique was utilized adhering to the principles of ALARA. COMPARISON STUDY: CT abdomen and pelvis 05/29/2016, abdominal ultrasound 10/08/2017 FINDINGS: Imaged lung bases appear generally clear with linear subsegmental atelectasis of the medial segment right middle lobe and inferior segment lingular. There is no pneumatosis or pneumoperitoneum identified. The imaged inferior cardiac chambers are unremarkable. Prior cholecystectomy. Hepatomegaly with suggested hepatic steatosis. Spleen is also enlarged, 16.2 cm. Pancreas and adrenal glands are unremarkable. Kidneys, ureters and bladder are unremarkable. Uterus and adnexa are within normal limits. Study is limited secondary to beam hardening artifact from patient body habitus. Aorta and IVC appear unremarkable. There are no pathologically enlarged lymph nodes identified. There is no bowel obstruction or focal bowel wall thickening. Terminal ileum and appendix appear normal. No ascites or mesenteric inflammatory changes. There is skin thickening with mild subcutaneous stranding about the lower anterior pelvic wall pannus. No drainable fluid collection identified to correlate with the reported sonographic findings on study from 10/08/2017. Tiny fat filled periumbilical hernia. Bones appear to be intact. Annular disc bulge is noted at L5-S1. Subcentimeter bone island of the right femoral neck. IMPRESSION: 1. No acute intra-abdominal or intrapelvic abnormality identified. 2. Hepatosplenomegaly with suggested hepatic steatosis. 3. Prior cholecystectomy. 4. Normal appendix. 5. Skin thickening with mild subcutaneous stranding about the lower anterior pelvic wall pannus suggests cellulitis. No drainable fluid collection identified. The 1.0 cm fluid collection described on comparison ultrasound is not definitively seen. Electronically signed by: Quentin Alcala M.D. 10/09/2017 7:58 AM Dictated Date/Time: 10/09/2017 7:51 AM
[2017-10-09] MEDS ORDERED: KETOROLAC TROMETHAMINE 30 MG/ML VIAL IV STA (09:41)
--- NOTE | 2017-10-09 10:25 | EMERGENCY ROOM VISIT NOTE ---
History Report prepared by Azeem: Howie Soto Under the Supervision of: Xavi GarciaO. First contact with patient: 06:38 Chief Complaint: FEVER Stated Complaint: CHILLS/FEVER History of Present Illness The patient is a 22 year old female who presents to the Emergency Room with complaints of constant chills that began last night. Patient describes the symptoms as "severe". She adds she has nausea and a waxing and waning fever. Patient denies vomiting. Patient states she was seen in the ER yesterday at 1700 for worsening lower abdominal redness that began 2 weeks ago. She adds the redness could have started due to an infected hair but states does not know for sure. She adds she was also experiencing nausea during that visit but not a fever. She adds she received an US yesterday. Patient adds that she was seen in the ER in May for an infection in the same lower abdominal area where they had to "cut into it and drain it". Source of History: patient Onset: Last night Position: head, abdomen Symptom Intensity: severe Timing: constant Modifying Factors (Relieving): other (None) Associated Symptoms: + fevers, + nausea, No vomiting Note: Positive abdominal swelling. Review of Systems See HPI for pertinent positives & negatives. A total of 10 systems reviewed and were otherwise negative. Past Medical & Surgical Medical Problems: (1) Allergic rhinitis (2) Asthma (3) Obesity Surgical Problems: (1) Status post cholecystectomy Family History Diabetes mellitus FATHER Heart disease MOTHER Social History Smoking Status: Never Smoker Alcohol Use: occasionally Drug Use: none Marital Status: single Housing Status: lives with family Occupation Status: unemployed Current/Historical Medications Scheduled Clindamycin HCl (Clindamycin HCl), 450 MG PO TID Allergies Coded Allergies: No Known Allergies (Unverified , 10/09/17) Physical Exam Vital Signs Date Time Temp Pulse Resp B/P (MAP) Pulse Ox O2 Delivery O2 Flow Rate FiO2 10/09/17 10:03 115 20 108/57 98 Room Air 10/09/17 08:02 124 20 111/79 93 Room Air 10/09/17 06:37 149 10/09/17 06:35 37.9 145 22 107/71 96 Room Air Physical Exam CONSTITUTIONAL/VITAL SIGNS: Reviewed / noted above. GENERAL: Obese, non-toxic in appearance. INTEGUMENTARY: Warm, dry, and [place]. HEAD: Normocephalic. EYES: without scleral icterus or trauma. ENT/OROPHARYNX: clear and moist. LYMPHADENOPATHY/NECK: Is supple without lymphadenopathy or meningismus. RESPIRATORY: Lungs clear and equal. CARDIOVASCULAR: Regular rate and rhythm. GI/ABDOMEN: Erythematous region in the lower abdominal panis. No visible discharge. Soft and nontender. No organomegaly or pulsatile mass. No rebound or guarding. Normal bowel sounds. EXTREMITIES: Warm and well perfused. BACK: No CVA tenderness. NEUROLOGICAL: Intact without focal deficits. PSYCHIATRIC: normal affect. MUSCULOSKELETAL: Normally developed with good muscle tone. Medical Decision & Procedures ER Provider Diagnostic Interpretation: Radiology results as stated below per my review and radiologist interpretation: ABDOMEN AND PELVIS CT WITH IV CONTRAST CT DOSE: 1896.32 mGy.cm HISTORY: Acute lower abdominal wall pain with cellulitis and possible abscess. eval lower abd wall cellulitis ? abscess TECHNIQUE: Multiaxial CT images of the abdomen and pelvis were performed following the use of intravenous contrast. A dose lowering technique was utilized adhering to the principles of ALARA. COMPARISON STUDY: CT abdomen and pelvis 05/29/2016, abdominal ultrasound 10/08/2017 FINDINGS: Imaged lung bases appear generally clear with linear subsegmental atelectasis of the medial segment right middle lobe and inferior segment lingular. There is no pneumatosis or pneumoperitoneum identified. The imaged inferior cardiac chambers are unremarkable. Prior cholecystectomy. Hepatomegaly with suggested hepatic steatosis. Spleen is also enlarged, 16.2 cm. Pancreas and adrenal glands are unremarkable. Kidneys, ureters and bladder are unremarkable. Uterus and adnexa are within normal limits. Study is limited secondary to beam hardening artifact from patient body habitus. Aorta and IVC appear unremarkable. There are no pathologically enlarged lymph nodes identified. There is no bowel obstruction or focal bowel wall thickening. Terminal ileum and appendix appear normal. No ascites or mesenteric inflammatory changes. There is skin thickening with mild subcutaneous stranding about the lower anterior pelvic wall pannus. No drainable fluid collection identified to correlate with the reported sonographic findings on study from 10/08/2017. Tiny fat filled periumbilical hernia. Bones appear to be intact. Annular disc bulge is noted at L5-S1. Subcentimeter bone island of the right femoral neck. IMPRESSION: 1. No acute intra-abdominal or intrapelvic abnormality identified. 2. Hepatosplenomegaly with suggested hepatic steatosis. 3. Prior cholecystectomy. 4. Normal appendix. 5. Skin thickening with mild subcutaneous stranding about the lower anterior pelvic wall pannus suggests cellulitis. No drainable fluid collection identified. The 1.0 cm fluid collection described on comparison ultrasound is not definitively seen. Electronically signed by: Quentin Alcala M.D. 10/09/2017 7:58 AM Laboratory Results 10/09/17 06:41 Red Blood Count 4.90, Mean Corpuscular Volume 85.1, Mean Corpuscular Hemoglobin 27.6, Mean Corpuscular Hemoglobin Concent 32.4, Mean Platelet Volume 10.9, Neutrophils (%) (Auto) 90.1, Lymphocytes (%) (Auto) 5.3, Monocytes (%) (Auto) 3.3, Eosinophils (%) (Auto) 0.6, Basophils (%) (Auto) 0.4, Neutrophils # (Auto) 12.24, Lymphocytes # (Auto) 0.72, Monocytes # (Auto) 0.45, Eosinophils # (Auto) 0.08, Basophils # (Auto) 0.05 10/09/17 06:41 Test 10/09/17 06:41 10/09/17 06:46 White Blood Count 13.58 K/uL (4.8-10.8) Red Blood Count 4.90 M/uL (4.2-5.4) Hemoglobin 13.5 g/dL (12.0-16.0) Hematocrit 41.7 % (37-47) Mean Corpuscular Volume 85.1 fL (80-100) Mean Corpuscular Hemoglobin 27.6 pg (25-34) Mean Corpuscular Hemoglobin Concent 32.4 g/dl (32-36) Platelet Count 289 K/uL (130-400) Mean Platelet Volume 10.9 fL (7.4-10.4) Neutrophils (%) (Auto) 90.1 % Lymphocytes (%) (Auto) 5.3 % Monocytes (%) (Auto) 3.3 % Eosinophils (%) (Auto) 0.6 % Basophils (%) (Auto) 0.4 % Neutrophils # (Auto) 12.24 K/uL (1.4-6.5) Lymphocytes # (Auto) 0.72 K/uL (1.2-3.4) Monocytes # (Auto) 0.45 K/uL (0.11-0.59) Eosinophils # (Auto) 0.08 K/uL (0-0.5) Basophils # (Auto) 0.05 K/uL (0-0.2) RDW Standard Deviation 42.8 fL (36.4-46.3) RDW Coefficient of Variation 13.8 % (11.5-14.5) Immature Granulocyte % (Auto) 0.3 % Immature Granulocyte # (Auto) 0.04 K/uL (0.00-0.02) Anion Gap 8.0 mmol/L (3-11) Est Creatinine Clear Calc Drug Dose 127.5 ml/min Estimated GFR () 70.2 Estimated GFR (Non- 60.6 BUN/Creatinine Ratio 8.2 (10-20) Calcium Level 8.5 mg/dl (8.5-10.1) Bedside Lactic Acid Venous 2.08 mmol/L (0.90-1.70) Laboratory results as stated above per my review. Medications Administered Medications (Trade) Dose Ordered Sig/Geovanny Route Start Time Stop Time Status Last Admin Dose Admin Daptomycin 600 mg/ Sodium Chloride 62 ml @ 100 mls/hr ONE ONCE IV 10/09/17 07:00 10/09/17 07:37 DC 10/09/17 07:24 100 MLS/HR Sodium Chloride 3,000 ml @ 999 mls/hr Q3H1M STAT IV 10/09/17 06:57 10/09/17 09:57 DC 10/09/17 07:24 999 MLS/HR Ketorolac Tromethamine (Toradol Inj) 30 mg NOW STAT IV 10/09/17 09:41 10/09/17 09:43 DC 10/09/17 10:02 30 MG ECG Per My Interpretation Indication: nausea Rate (beats per minute): 147 Rhythm: sinus tachycardia Findings: no ectopy, other (No ST elevation) ED Course 0640: Previous medical records were reviewed. The patient was evaluated in room B6. A complete history and physical examination was performed. 0657: Sodium Chloride 3000 ml @ 999 mls/hr IV 0700: Daptomycin 600mg/Sodium Chloride 62 ml @ 100mls/hr IV 0715: Ioversol 125ml IV 0957: On reevaluation, the patient will be further evaluated. I discussed the results and findings with her. She verbalized agreement of the treatment plan. I spoke with Vijaya Walls PA-C of the [facility]. The patient will be evaluated for further management and care. Medical Decision Differential includes viral illness, influenza, streptococcal pharyngitis, meningitis, pneumonia, sinusitis, UTI, pyelonephritis, otitis media. This is a 22-year-old female who presents to the ED with a chief complaint of a fever, chills and nausea. She was seen yesterday for an abdominal wall cellulitis. She returns today because of her worsening symptoms. She is found to be tachycardic with a heart rate of 140. Temperature was 37.9. Blood pressure is 107/71. The patient had similar symptoms in May and a wound culture showed staph aureus. The patient does not have any apparent drainable abscess at this time. EKG shows a sinus tach at a rate of 147. Abdomen reveals diffuse abdominal wall cellulitis mostly in the infraumbilical area. A CT scan of the abdomen and pelvis does not show any evidence of abscess. Cellulitis is present. White blood cell count was 13.58. Glucose is 145 and a lactic acid level slightly elevated 2.08. The patient was treated with IV daptomycin as well as 3 L normal saline IV and IV Toradol. She will be seen by the hospitalist service for further inpatient evaluation and care. Medication Reconcilliation Current Medication List: was personally reviewed by me Blood Pressure Screening Patient's blood pressure: Normal blood pressure Blood pressure disposition: Did not require urgent referral Consults Time Called: [id number] Consulting Physician: Vijaya Walls PA-C - [facility] Returned Call: [phone] Discussed the patient's case. The patient will be evaluated for further treatment and disposition. Impression Primary Impression: Abdominal wall cellulitis Additional Impressions: Sepsis Morbid obesity Scribe Attestation The scribe's documentation has been prepared under my direction and personally reviewed by me in its entirety. I confirm that the note above accurately reflects all work, treatment, procedures, and medical decision making performed by me. Departure Information Dispostion Being Evaluated By Hospitalist Referrals Kelin Mccurdy (PCP) Forms HOME CARE DOCUMENTATION FORM, IMPORTANT VISIT INFORMATION Patient Instructions My [facility] Problem Qualifiers
[2017-10-09] MEDS ORDERED: ONDANSETRON INJ 2 MG/ML 2 ML VIAL IV PRN (11:00)
[2017-10-09] MEDS ORDERED: ACETAMINOPHEN 325 MG TAB PO PRN (11:00)
--- NOTE | 2017-10-09 11:04 | History and Physical ---
History & Physical Date & Time of Service: Oct 09, 2017 at 11:04 Chief Complaint: Chills/Fever Primary Care Physician: Kelin Mccurdy History of Present Illness Source: patient, clinic records, hospital records Patient is a 22yo F with a PMH of h/o abdominal wall cellulitis, morbid obesity , tobacco use and other medical problems listed below who presents with chills, subjective fever and nausea x 2 days. Has also been experiencing abdominal redness and intermittent aching pain for the past 2 weeks. Was seen in the ED yesterday and was diagnosed with abdominal wall cellulitis without abscess and sent home with oral clindamycin. Patient has not yet filled prescription. Overnight, abdominal pain worsened with continued subjective fever, chills and nausea. Denies any vomiting. No open skin wounds but does have cat scratches higher on abdomen. Has been admitted previously in May for abdominal wall cellulitis with abscess that required I&D and IV antibiotics. Had flushing in reaction to IV vanco so was transitioned to IV dapto. Wound culture grew pansensitive staph aureus. Denies lightheadedness, visual changes, palpitations , chest pain or SOB. Past Medical/Surgical History Medical Problems: (1) ADHD Status: Chronic (2) Allergic rhinitis Status: Resolved (3) Asthma Status: Chronic (4) Bipolar disorder Status: Chronic (5) Cellulitis and abscess of unspecified site Status: Resolved (6) Morbid obesity Status: Chronic Surgical Problems: (1) Status post cholecystectomy Status: Chronic Family History Diabetes mellitus FATHER Heart disease MOTHER Social History Smoking Status: Current Every Day Smoker Alcohol Use: none Drug Use: none Marital Status: single Housing status: lives with family Occupational Status: unemployed Allergies Coded Allergies: No Known Allergies (Unverified , 10/09/17) Home Medications Scheduled Clindamycin HCl (Clindamycin HCl), 450 MG PO TID Review of Systems Ten systems reviewed and negative except as noted in the HPI. Physical Exam Vital Signs Date Time Temp Pulse Resp B/P (MAP) Pulse Ox O2 Delivery O2 Flow Rate FiO2 10/09/17 10:03 115 20 108/57 98 Room Air 10/09/17 08:02 124 20 111/79 93 Room Air 10/09/17 06:37 149 10/09/17 06:35 37.9 145 22 107/71 96 Room Air General Appearance: + obese Head: normocephalic, atraumatic Eyes: normal inspection, PERRL, sclerae normal ENT: normal ENT inspection, hearing grossly normal, pharynx normal (mucous membranes moist ) Neck: supple, thyroid normal, trachea midline Respiratory/Chest: chest non-tender, lungs clear, normal breath sounds, no respiratory distress, no accessory muscle use Cardiovascular: no murmur, normal peripheral pulses, + tachycardia Abdomen/GI: normal bowel sounds, soft, + tenderness (Mild TTP in erythematous region) Back: normal inspection Extremities/Musculoskelatal: normal inspection, no calf tenderness, no pedal edema Neurologic/Psych: no motor/sensory deficits, alert, normal mood/affect, oriented x 3 Skin: warm/dry, no rash, + pertinent finding (Erythematous region distal to umbilicus without associated drainage or open wounds) Diagnostics Laboratory Results Results Past 24 Hours Test 10/09/17 06:41 10/09/17 06:46 10/09/17 11:00 Range/Units White Blood Count 13.58 4.8-10.8 K/uL Red Blood Count 4.90 4.2-5.4 M/uL Hemoglobin 13.5 12.0-16.0 g/dL Hematocrit 41.7 37-47 % Mean Corpuscular Volume 85.1 80-100 fL Mean Corpuscular Hemoglobin 27.6 25-34 pg Mean Corpuscular Hemoglobin Concent 32.4 32-36 g/dl Platelet Count 289 130-400 K/uL Mean Platelet Volume 10.9 7.4-10.4 fL Neutrophils (%) (Auto) 90.1 % Lymphocytes (%) (Auto) 5.3 % Monocytes (%) (Auto) 3.3 % Eosinophils (%) (Auto) 0.6 % Basophils (%) (Auto) 0.4 % Neutrophils # (Auto) 12.24 1.4-6.5 K/uL Lymphocytes # (Auto) 0.72 1.2-3.4 K/uL Monocytes # (Auto) 0.45 0.11-0.59 K/uL Eosinophils # (Auto) 0.08 0-0.5 K/uL Basophils # (Auto) 0.05 0-0.2 K/uL RDW Standard Deviation 42.8 36.4-46.3 fL RDW Coefficient of Variation 13.8 11.5-14.5 % Immature Granulocyte % (Auto) 0.3 % Immature Granulocyte # (Auto) 0.04 0.00-0.02 K/uL Sodium Level 141 136-145 mmol/L Potassium Level 3.6 3.5-5.1 mmol/L Chloride Level 109 98-107 mmol/L Carbon Dioxide Level 25 21-32 mmol/L Anion Gap 8.0 3-11 mmol/L Blood Urea Nitrogen 10 7-18 mg/dl Creatinine 1.25 0.60-1.20 mg/dl Est Creatinine Clear Calc Drug Dose 127.5 ml/min Estimated GFR () 70.2 Estimated GFR (Non- 60.6 BUN/Creatinine Ratio 8.2 10-20 Random Glucose 145 70-99 mg/dl Calcium Level 8.5 8.5-10.1 mg/dl Bedside Lactic Acid Venous 2.08 0.90-1.70 mmol/L Microbiology Results 10/09/17 Blood Culture, Received Pending 10/09/17 Blood Culture, Received Pending Diagnostic Radiology CT abd/pelvis: IMPRESSION: 1. No acute intra-abdominal or intrapelvic abnormality identified. 2. Hepatosplenomegaly with suggested hepatic steatosis. 3. Prior cholecystectomy. 4. Normal appendix. 5. Skin thickening with mild subcutaneous stranding about the lower anterior pelvic wall pannus suggests cellulitis. No drainable fluid collection identified. The 1.0 cm fluid collection described on comparison ultrasound is not definitively seen. Impression Assessment and Plan Patient is a 22yo F with a PMH of h/o abdominal wall cellulitis, morbid obesity , tobacco use and other medical problems listed below who presents with chills, subjective fever and nausea x 2 days and was found to have abdominal wall cellulitis. Sepsis 2/2 abdominal wall cellulitis -Redness and aching pain x 2 weeks, fever/chills for few days -Meets sepsis by SIRs criteria with fever of 37.9. HR of 141 and POC lactic acid of 2.08 -BP is stable. HR decreased to 110 with IV fluids -CT abd/pelvis with skin thickening with mild subcutaneous stranding about the lower anterior pelvic wall pannus suggests cellulitis. No drainable fluid collection identified. -Received 3L NSS in ED. Will continue IV fluids -Repeat lactic acid pending -Continue IV Dapto with ID consult -Blood cultures pending -Pain control Sinus tachycardia -In setting of infection, dehydration -EKG with sinus tach of 147 -HR improved to 110 with fluids Acute kidney injury -In setting of acute infection, decreased PO intake -Cr of 1.25 (baseline 0.8-0.9) -IV fluids -Repeat PRP in AM Tobacco use -Ordered nicotine patch ADHD, bipolar disorder -Stable -Currently not on medication DVT Ppx: kalen arce Code status: FULL PCP: MILLIE Hayward Dispo: Admitted to med/surg. Plan to return home once medically stable. Patient seen in collaboration with Dr. Nina. Please see addendum. ADDENDUM: This is a 22 year old female with a past medical history of morbid obesity, abdominal wall cellulitis and tobacco use disorder - presents with abdominal wall cellulitis. She was here yesterday (10/08) in the ER - was given oral abx. but states it did not help, so she returned to the ER. Patient with elevated white count, tachycardia, lactic acidosis - meets sepsis criteria Plan: Giving Daptomycin for today and one dose on 10/10 Can likely change to oral doxycycline or clindamycin appreciate ID input giving IVFs due to acute kidney injury and sepsis lactic acidosis resolved Resuscitation Status VTE Prophylaxis Will order VTE Prophylaxis: Yes
[2017-10-09] MEDS ORDERED: DAPTOMYCIN CONSULT ACTIVE PRN (11:55)
[2017-10-09 12:00] VITALS: O2SAT 97; Ht 165.1 cm; Wt 203.0 kg
[2017-10-09] MEDS ORDERED: HYDROCODONE/ACETAMIN 5/325MG TAB PO PRN (12:30)
[2017-10-09 13:45] VITALS: BP 134/85; PULSE 106; TEMP 37.1; O2SAT 95
[2017-10-09] MEDS: SODIUM CHLORIDE 0.9% 1000ML 1,000 ML IV SCH ×2 (14:48→23:23)
--- NOTE | 2017-10-09 15:06 | Progress Note ---
Progress Note Date of Service Oct 09, 2017. Progress Note ID Consult Dictated #[id number] A/P: 1. Panniculitis 2. Leukocytosis -Can continue dapto for now, follow blood cultures, clinical response -When otherwise stable, can d/c on po clinda or doxy as alternative for 14 days -thank you
--- NOTE | 2017-10-09 15:48 | INFECT. DISEASE CONSULTATION ---
DATE OF CONSULTATION: 10/09/2017 HISTORY OF PRESENT ILLNESS: This is a 22-year-old female who was admitted to the hospital with worsening abdominal wall cellulitis. She was initially placed on vancomycin, but then changed to daptomycin secondary to morbid obesity. Infectious diseases was consulted for daptomycin use. Her blood cultures are pending. She had a mild fever of 37.9. Her white blood cell count is mildly elevated at 13.5. She did have a CAT scan of the abdomen and pelvis which showed evidence of panniculitis with no underlying abscess. She states that she is feeling some abdominal tenderness, but overall feeling better since admission. She currently denies any fevers or chills. She has no nausea, vomiting, diarrhea or abdominal pain. She denies any chest pain, cough, shortness of breath. She denies any bleeding or drainage from the abdomen. She denies any trauma to the area. Per the H and P, she recently had a superficial wound culture which grew a pansensitive Staph aureus, but the last cultures in [facility] are from May 2016. REVIEW OF SYSTEMS: Her remaining review of systems is reviewed and unremarkable. She was seen in the Emergency Room recently and given oral clindamycin; however, she did not take this. PAST MEDICAL HISTORY: Significant for ADHD, allergic rhinitis, asthma, bipolar disorder, morbid obesity. PAST SURGICAL HISTORY: Significant for cholecystectomy. FAMILY HISTORY: Noncontributory. ALLERGIES: She has no known drug allergies. SOCIAL HISTORY: Significant for daily tobacco use. She denies any alcohol or drug use. MEDICATIONS: Daptomycin, Percocet, Tylenol, Zofran. PHYSICAL EXAMINATION: VITAL SIGNS: She is currently afebrile, pulse 106, respiratory rate 18, blood pressure 134/85, oxygen saturation is 98% on room air. GENERAL: She is awake, alert and oriented x3. She is in no acute distress. HEENT: Mucous membranes are moist. Extraocular muscles are intact. HEART: Regular. LUNGS: Clear. ABDOMEN: Soft, nontender, nondistended. There is erythema on the right lower quadrant which is improved from a line drawn in the Emergency Room earlier. There are no open wounds or drainage. There is minimal warmth and tenderness to palpation. There is no lower extremity edema bilaterally. LABORATORY STUDIES: CBC: White blood cell count 13.5, hemoglobin 13.5, platelets 289. Chemistry panel: Sodium 141, potassium 3.6, chloride 109, bicarbonate 25, BUN 10, creatinine 1.2, glucose 145. Blood cultures are pending. CAT scan is as above. ASSESSMENT AND PLAN: 1. Panniculitis. 2. Leukocytosis. She will remain on daptomycin. She has clinical improvement. She certainly could be changed to oral antibiotics. Doxycycline or clindamycin would be acceptable alternative. I would give a minimum of 14 days of outpatient antibiotics. Thank you for this consultation.
[2017-10-09 16:00] VITALS: O2SAT 95
[2017-10-09] MEDS ORDERED: ONDANSETRON INJ 2 MG/ML 2 ML VIAL IV ONE (17:30)
[2017-10-10 00:04] VITALS: BP 133/91; PULSE 99; TEMP 37.3; O2SAT 97
[2017-10-10] MEDS: SODIUM CHLORIDE 0.9% 1000ML 1,000 ML IV SCH (06:34)
[2017-10-10 06:50] VITALS: BP 124/86; PULSE 85; TEMP 37.2; O2SAT 99
[2017-10-10] MEDS ORDERED: DAPTOmycin IV 500 MG in SYRINGE 0 ML IV SCH (08:00)
--- NOTE | 2017-10-10 08:53 | Progress Note ---
Subjective Date of Service: Oct 10, 2017. Subjective Pt evaluation today including: conversation w/ patient, physical exam, lab review, review of studies, review of inpatient medication list Saw/examined the patient in room 263 No problems/issues at this time States that her swelling/erythema improved Denies fevers/chills Refused labs this AM; wanting to go home; states her boyfriend is waiting for her in the parking lot Problem List Medical Problems: (1) Abdominal wall cellulitis Status: Acute (2) Abdominal wall cellulitis Status: Acute (3) Abdominal wall cellulitis Status: Acute (4) Cellulitis of abdominal wall Status: Acute (5) Cutaneous abscess of abdominal wall Status: Acute (6) Morbid obesity Status: Chronic (7) Sepsis Status: Acute Review of Systems Constitutional: No fever, No chills Respiratory: No cough, No sputum, No shortness of breath Cardiac: No chest pain, No edema, No palpitations Abdomen: No pain, No nausea, No vomiting, No diarrhea Medications Current Inpatient Medications Medications (Trade) Dose Ordered Sig/Geovanny Route Start Time Stop Time Status Last Admin Dose Admin Ioversol (Optiray 320) 125 ml UD PRN IV 10/09/17 07:15 10/13/17 07:14 Acetaminophen (Tylenol Tab) 650 mg Q4H PRN PO 10/09/17 11:00 11/08/17 10:59 Ondansetron HCl (Zofran Inj) 4 mg Q6H PRN IV 10/09/17 11:00 11/08/17 10:59 Sodium Chloride 1,000 ml @ 125 mls/hr Q8H IV 10/09/17 11:00 11/08/17 10:59 10/10/17 06:34 125 MLS/HR Daptomycin (Consult) 1 ea UD PRN N/A 10/09/17 11:55 11/08/17 11:54 Acetaminophen/ Hydrocodone Bitart ([place] 5/325 Tab) 1 tab Q4 PRN PO 10/09/17 12:30 10/23/17 12:29 Daptomycin 500 mg/ Syringe 10 ml @ 5 mls/min Q24H IV 10/10/17 08:00 10/18/17 08:01 10/10/17 08:14 5 MLS/MIN Objective Vital Signs Date Time Temp Pulse Resp B/P (MAP) Pulse Ox O2 Delivery O2 Flow Rate FiO2 10/10/17 06:50 37.2 85 18 124/86 (99) 99 Room Air 10/10/17 00:04 37.3 99 18 133/91 (105) 97 Room Air 10/09/17 23:59 Room Air 10/09/17 16:00 95 Room Air 10/09/17 13:45 37.1 106 18 134/85 (101) 95 10/09/17 12:55 97 20 124/72 97 Room Air 10/09/17 12:00 97 Room Air 10/09/17 11:17 110 20 108/46 96 Room Air 10/09/17 10:03 115 20 108/57 98 Room Air Physical Exam General Appearance: no apparent distress Respiratory/Chest: lungs clear, normal breath sounds, no respiratory distress, no accessory muscle use Cardiovascular: regular rate, rhythm, no edema, no murmur Abdomen: + pertinent finding (erythema improving, swelling improved, not warm to touch) Neurologic/Psychiatric: no motor/sensory deficits, alert, normal mood/affect Laboratory Results Last 24 Hours Test 10/09/17 11:33 10/10/17 04:44 Lactic Acid Level 0.8 mmol/L Assessment and Plan This is a 22 year old female with a past medical history of morbid obesity, abdominal wall cellulitis and tobacco use disorder - presents with abdominal wall cellulitis. Sepsis secondary to Abdominal Wall Cellulitis 10/10 - Daptomycin x2 days - switch to doxycycline or clindamycin for 14 days - cellulitis improving - lactic acidosis resolved - unfortunately, refusing labs this AM, cannot recheck white count - will make an outpatient PCP follow-up and outpatient lab work 10/09 -Redness and aching pain x 2 weeks, fever/chills for few days -Meets sepsis by SIRs criteria with fever of 37.9. HR of 141 and POC lactic acid of 2.08 -BP is stable. HR decreased to 110 with IV fluids -CT abd/pelvis with skin thickening with mild subcutaneous stranding about the lower anterior pelvic wall pannus suggests cellulitis. No drainable fluid collection identified. -Received 3L NSS in ED. Will continue IV fluids -Repeat lactic acid pending -Continue IV Dapto with ID consult -Blood cultures pending -Pain control Sinus tachycardia - resolved -In setting of infection, dehydration -EKG with sinus tach of 147 -HR improved to 110 with fluids Acute kidney injury - gave IVFs; cannot monitor improvement because she is refusing labs - outpatient BMP Tobacco use - Ordered nicotine patch ADHD, bipolar disorder - Stable - Currently not on medication DVT ppx - SCDs FULL CODE
--- NOTE | 2017-10-10 09:07 | Discharge Instructions ---
Discharge Instructions Date of Service Oct 10, 2017. Admission Reason for Admission: Chills/Fever Discharge Discharge Diagnosis / Problem: Abdominal Wall Infection Discharge Goals Goal(s): Decrease discomfort, Improve function, Diagnostic testing, Therapeutic intervention Activity Recommendations Activity Limitations: resume your previous activity . Instructions / Follow-Up Instructions / Follow-Up Please follow-up with Dr. Reina (covering for your primary care) on October 16 at 12:45PM Take Clindamycin for your infection for the next 2 weeks Your primary care doctor should recheck your blood work (CBC and BMP) to make sure your white blood cell count and kidney function are getting better Current Hospital Diet Patient's current hospital diet: Regular Diet Discharge Diet Recommended Diet: Regular Diet Pending Studies Studies pending at discharge: no Medical Emergencies . Who to Call and When: Medical Emergencies: If at any time you feel your situation is an emergency, please call 911 immediately. . Non-Emergent Contact Non-Emergency issues call your: Primary Care Provider . . "Provider Documentation" section prepared by Yoandy Nina. .
--- NOTE | 2017-10-10 09:10 | Discharge Summary ---
Discharge Summary Date of Service Oct 10, 2017. Discharge Summary Admission Date: Oct 09, 2017 at 10:55 Discharge Date: Oct 10, 2017 Discharge Disposition: Home Principal Diagnosis: Sepsis secondary to Abdominal Wall Cellulitis Acute Kidney Injury Medication Reconciliation Continued Medications: Clindamycin HCl (Clindamycin HCl) 150 Mg Cap 450 MG PO TID TO START 10/09/17, DID NOT START YET. Admission Information HPI (per Admitting provider): Patient is a 22yo F with a PMH of h/o abdominal wall cellulitis, morbid obesity , tobacco use and other medical problems listed below who presents with chills, subjective fever and nausea x 2 days. Has also been experiencing abdominal redness and intermittent aching pain for the past 2 weeks. Was seen in the ED yesterday and was diagnosed with abdominal wall cellulitis without abscess and sent home with oral clindamycin. Patient has not yet filled prescription. Overnight, abdominal pain worsened with continued subjective fever, chills and nausea. Denies any vomiting. No open skin wounds but does have cat scratches higher on abdomen. Has been admitted previously in May for abdominal wall cellulitis with abscess that required I&D and IV antibiotics. Had flushing in reaction to IV vanco so was transitioned to IV dapto. Wound culture grew pansensitive staph aureus. Denies lightheadedness, visual changes, palpitations , chest pain or SOB. Physical Exam (per Admitting): General Appearance: + obese Head: normocephalic, atraumatic Eyes: normal inspection, PERRL, sclerae normal ENT: normal ENT inspection, hearing grossly normal, pharynx normal (mucous membranes moist ) Neck: supple, thyroid normal, trachea midline Respiratory/Chest: chest non-tender, lungs clear, normal breath sounds, no respiratory distress, no accessory muscle use Cardiovascular: no murmur, normal peripheral pulses, + tachycardia Abdomen/GI: normal bowel sounds, soft, + tenderness (Mild TTP in erythematous region) Back: normal inspection Extremities/Musculoskelatal: normal inspection, no calf tenderness, no pedal edema Neurologic/Psych: no motor/sensory deficits, alert, normal mood/affect, oriented x 3 Skin: warm/dry, no rash, + pertinent finding (Erythematous region distal to umbilicus without associated drainage or open wounds) Hospital Course This is a 22 year old female with a past medical history of morbid obesity, abdominal wall cellulitis and tobacco use disorder - presents with abdominal wall cellulitis. Sepsis secondary to Abdominal Wall Cellulitis 10/10 - Daptomycin x2 days - switch to doxycycline or clindamycin for 14 days - cellulitis improving - lactic acidosis resolved - unfortunately, refusing labs this AM, cannot recheck white count - will make an outpatient PCP follow-up and outpatient lab work 10/09 -Redness and aching pain x 2 weeks, fever/chills for few days -Meets sepsis by SIRs criteria with fever of 37.9. HR of 141 and POC lactic acid of 2.08 -BP is stable. HR decreased to 110 with IV fluids -CT abd/pelvis with skin thickening with mild subcutaneous stranding about the lower anterior pelvic wall pannus suggests cellulitis. No drainable fluid collection identified. -Received 3L NSS in ED. Will continue IV fluids -Repeat lactic acid pending -Continue IV Dapto with ID consult -Blood cultures pending -Pain control Sinus tachycardia - resolved -In setting of infection, dehydration -EKG with sinus tach of 147 -HR improved to 110 with fluids Acute kidney injury - gave IVFs; cannot monitor improvement because she is refusing labs - outpatient BMP Tobacco use - Ordered nicotine patch ADHD, bipolar disorder - Stable - Currently not on medication DVT ppx - SCDs FULL CODE Total time spent on discharge = 25 minutes This includes examination of the patient, discharge planning, medication reconciliation, and communication with other providers. Discharge Instructions Please follow-up with Dr. Reina (covering for your primary care) on October 16 at 12:45PM Take Clindamycin for your infection for the next 2 weeks Your primary care doctor should recheck your blood work (CBC and BMP) to make sure your white blood cell count and kidney function are getting better
[2017-10-10 10:38] VITALS: BP 124/86; PULSE 85; TEMP 37.2; O2SAT 99
== END 2017-10-10 11:23 | disposition home or self-care (01) | DRG 872 ==
LOC: EDBD 06:30 → C.EDB 06:31 → C.MS2W 10:55 → ENRESERV 12:07
PROVIDERS: ADMIT Family Medicine; ATTEND Family Medicine
DX: A41.9 Sepsis, unspecified organism (principal); L03.311 Cellulitis of abdominal wall; N17.9 Acute kidney failure, unspecified; E66.01 Morbid (severe) obesity due to excess calories; Z68.45 Body mass index [BMI] 70 or greater, adult; E86.0 Dehydration; M79.3 Panniculitis, unspecified; F17.200 Nicotine dependence, unspecified, uncomplicated